=== PATIENT | male | born 1935 | race African-American/Black ===

== ENCOUNTER 2016-05-04 18:32 | Inpatient (IN) | payer MEDICARE, OTHER ==
[~2016-05-04] VITALS: Ht 152.4 cm; Wt 48.8 kg
[2016-05-04] MEDS ORDERED: CEFEPIME 2GM/50 ML (PMX) 50 ML IVPB STA (18:35)
[2016-05-04] MEDS ORDERED: SOD CHLORIDE 0.9% 1,000 ML IV STA ×2 (18:35)
[2016-05-04 18:49] VITALS: Ht 152.4 cm; Wt 48.8 kg
[2016-05-04] MEDS ORDERED: VANCOMYCIN 1 GM (PMX) 250 ML IVPB ONE (19:00)
[2016-05-04] MEDS ORDERED: ACETAMINOPHEN 650 MG SUPP PR ONE (19:00)
[2016-05-04 19:03] LABS: HEMATOCRIT 29.9 % (42.0-52.0); HEMOGLOBIN 10.1 g/dl (14.0-18.0); MEAN CORPUSCULAR HEMOGLOBIN 30.9 pg (29.0-33.0); MEAN CORPUSCULAR HGB CONC 33.7 g/dl (32.0-37.0); MEAN CORPUSCULAR VOLUME 91.6 fl (82.0-101.0); MEAN PLATELET VOLUME 7.6 fl (7.4-10.4); PLATELET COUNT 235 10^3/UL (140-440); RED BLOOD COUNT 3.27 10^6/ul (4.70-6.10); RED CELL DISTRIBUTION WIDTH 16.5 % (11.5-14.5); UNCORRECTED WBC 24.3 10^3/ul (4.8-10.8); WHITE BLOOD COUNT 24.3 10^3/ul (4.8-10.8)
[2016-05-04 19:04] LABS: CONDITION 1; SUSPECT 1
[2016-05-04 19:05] LABS: LH ANALYZER COMMENTS 1
[2016-05-04 19:09] LABS: ADD UMIC YES; URINE BILIRUBIN (Dip) NEGATIVE (NEGATIVE); URINE BLOOD (Dip) TRACE (NEGATIVE); URINE COLOR LT. YELLOW (YELLOW); URINE GLUCOSE (Dip) NEGATIVE (NEGATIVE); URINE KETONES (Dip) NEGATIVE (NEGATIVE); URINE LEUKOCYTE ESTERASE (Dip) 3+ (NEGATIVE); URINE NITRITE (Dip) NEGATIVE (NEGATIVE); URINE TOTAL PROTEIN (Dip) 4+ (NEGATIVE); URINE UROBILINOGEN (Dip) 0.2 E.U./dL (0.1-1.0)
[2016-05-04 19:12] LABS: INR 1.22; PROTIME 15.5 Sec (12.2-14.2); PT RATIO 1.2
[2016-05-04 19:13] LABS: PARTIAL THROMBOPLASTIN TIME 39.9 Sec (25.0-35.0)
[2016-05-04 19:17] LABS: ALBUMIN 3.5 g/dl (3.3-4.9); BACTERIA,URINE MODERATE; POTASSIUM 4.3 mmol/L (3.5-5.1); URINE RBCS 0-2 /HPF (0)
[2016-05-04 19:19] LABS: CREATININE 3.19 mg/dl (0.61-1.24)
[2016-05-04 19:20] LABS: ALBUMIN/GLOBULIN RATIO 0.7; CALCIUM 8.4 mg/dl (8.4-10.2); TOTAL PROTEIN 8.5 g/dl (6.1-8.1)
[2016-05-04 19:38] LABS: MONOCYTE # 0.7 10^3/ul (0.3-0.9); NEUTROPHIL # 19.7 10^3/ul (1.6-7.5); PLATELET ESTIMATE PLT APPEAR ADEQUATE
[2016-05-04 19:42] LABS: TROPONIN-I 0.13 ng/ml (0.00-0.12)
--- NOTE | 2016-05-04 19:54 | RADRPT ---
PROCEDURE: XR Chest. CLINICAL INDICATION: Sepsis TECHNIQUE: Single frontal chest x-ray. COMPARISON: None. FINDINGS: There is mild bibasilar atelectasis. No acute infiltrate, pleural effusion or pneumothorax is ident ified. Cardiomediastinal silhouette is borderline enlarged. Aortic atherosclerotic calcifications are noted. The osseous structures are remarkable for degenerative spondylosis of the spine. IMPRESSION: 1. Borderline enlarged cardiac silhouette. 2. Aortic atherosclerosis. 3. Mild bibasilar atelectasis. 4. No evidence of acute cardiopulmonary process. RPTAT: QQ .Maikel Rendon MD, Date Time Electronically viewed and signed by .Maikel Rendon MD, on 05/04/2016 19:54 .R/
[2016-05-04] MEDS ORDERED: ASPIRIN 300 MG SUPP PR ONE (20:00)
--- NOTE | 2016-05-04 20:12 | ERA ---
ER Documentation Chief Complaint Date/Time DATE: 05/04/16 TIME: 20:09 Chief Complaint respiratory distress HPI Patient is a 72-year-old male who presents with fever, tachycardia, and hypoxia. Please note the history and physical exam is limited secondary to the patient being nonverbal at baseline. The patient was 88% oxygen saturation on nonrebreather mask. He came from a nursing facility. He is a DNR. His primary doctor is Dr. Parker Christie. I cannot obtain history otherwise. ROS All systems reviewed and are negative except as per history of present illness. Allergies Allergies: Coded Allergies: No Known Allergy (Unverified , 05/04/16) PMhx/Soc Hx Neurological Disorder: Yes (parkinsons, CVA (L weakness), seizures) Hx Psychiatric Problems: Yes (dementia, depression) Smoking Status: Unknown if ever smoked FmHx Unable to obtain Physical Exam Vitals Vital Signs Date Time Temp Pulse Resp B/P Pulse Ox O2 Delivery O2 Flow Rate FiO2 05/04/16 19:06 Non Rebreather 15.0 05/04/16 18:50 Non Rebreather 15 05/04/16 18:49 100.2 102 21 121/100 100 Physical Exam Const: Chronically ill Head: Atraumatic Eyes: Normal Conjunctiva ENT: Normal External Ears, Nose and Mouth. Neck: Full range of motion..~ No meningismus. Resp: Decreased breath sounds bilateral Cardio: Regular rate and rhythm, no murmurs Abd: Soft, non tender, non distended. Normal bowel sounds Skin: Pale Back: No midline or flank tenderness Ext: No cyanosis, or edema Neur: Encephalopathic at baseline Result Diagram: 05/04/16183405/04/16 1835 Results 24 hrs Laboratory Tests Test 05/04/16 18:35 Activated Partial Thromboplast Time 39.9Sec Alanine Aminotransferase (ALT/SGPT) 37IU/L Albumin 3.5g/dl Albumin/Globulin Ratio 0.70 Alkaline Phosphatase 173IU/L Anion Gap 19 Aspartate Amino Transf (AST/SGOT) 73IU/L Band Neutrophils % 12.0% Blood Morphology Comment Blood Urea Nitrogen 104mg/dl Calcium Level 8.4mg/dl Carbon Dioxide Level 31mmol/L Chloride Level 102mmol/L Creatinine 3.19mg/dl Direct Bilirubin 0.00mg/dl Globulin 5.00g/dl Glucose Level 127mg/dl Hematocrit 29.9% Hemoglobin 10.1g/dl INR International Normalized Ratio 1.22 Indirect Bilirubin 0.0mg/dl Lactic Acid Level 2.1mmol/L Lymphocytes # 1.010^3/ul Lymphocytes % 4.0% Mean Corpuscular Hemoglobin 30.9pg Mean Corpuscular Hemoglobin Concent 33.7g/dl Mean Corpuscular Volume 91.6fl Mean Platelet Volume 7.6fl Monocytes # 0.710^3/ul Monocytes % 3.0% Neutrophils # 19.710^3/ul Neutrophils % 81.0% Platelet Count 61747^3/UL Platelet Estimate PLT APPEAR ADEQUATE Potassium Level 4.3mmol/L Prothrombin Time 15.5Sec Prothrombin Time Ratio 1.2 Red Blood Count 3.2710^6/ul Red Cell Distribution Width 16.5% Sodium Level 148mmol/L Total Bilirubin 0.0mg/dl Total Protein 8.5g/dl Troponin I 0.130ng/ml Urine Bacteria MODERATE Urine Bilirubin NEGATIVE Urine Clarity CLOUDY Urine Color LT. YELLOW Urine Glucose NEGATIVE% Urine Hemoglobin TRACE Urine Ketones NEGATIVE Urine Leukocyte Esterase 3+ Urine Microscopic RBC 0-2/HPF Urine Microscopic WBC 2-5/HPF Urine Nitrite NEGATIVE Urine Specific [place] <=1.005 Urine Total Protein 4+ Urine Triple Phosphate Crystals MODERATE Urine Urobilinogen 0.2 E.U./dL Urine pH >=9.0 White Blood Count 24.310^3/ul Current Medications Medications (Trade) Dose Ordered Sig/Marquita Route PRN Reason Start Time Stop Time Status Last Admin Dose Admin Cefepime HCl 50 ml @ 100 mls/hr ONCE STAT IVPB 05/04/16 18:35 05/04/16 19:04 DC 05/04/16 19:13 Vancomycin HCl 250 ml @ 125 mls/hr ONCE ONCE IVPB 05/04/16 19:00 05/04/16 20:59 05/04/16 19:40 Sodium Chloride 1,000 ml @ 1,000 mls/hr Q1H STAT IV 05/04/16 18:35 05/04/16 19:34 DC 05/04/16 19:12 Sodium Chloride (NS) 1,000 ml @ 1,000 mls/hr Q1H STAT IV 05/04/16 18:35 05/04/16 19:34 DC 05/04/16 19:40 Acetaminophen (Tylenol Supp) 650 mg ONCE ONCE [place] 05/04/16 19:00 05/04/16 19:01 DC 05/04/16 19:13 Aspirin (Aspirin) 300 mg ONCE ONCE [place] 05/04/16 20:00 05/04/16 20:01 DC Ondansetron HCl (Zofran Inj) 4 mg BRIDGE ORDER PRN IV NAUSEA AND/OR VOMITING 05/04/16 20:30 05/05/16 20:29 Acetaminophen (Tylenol Tab) 650 mg ER BRIDGE PRN PO MILD PAIN/FEVER 05/04/16 20:30 05/05/16 20:29 Procedures/MDM EKG read by me: Rate/Rhythm: Regular rate and rhythm at a rate of 98 Intervals: Normal Impression: Wandering baseline but no obvious signs of ST elevations or depressions Chest X-ray 1V Interpreted by me: Soft Tissue: No acute abnormalities Bones: No acute abnormalities Mediastinum/Cardiac Silhouette/Lungs: Possible left lower lobe infiltrate Admit MDM: Patient's infectious symptoms have not stabilized and the patient is at risk of rapid decompensation. The patient will be admitted for careful hydration, antibiotic therapy, and infectious source control. Severe Sepsis criteria: Infectious source: Pneumonia End organ damage indicated by: Lactate greater than 2 Sepsis Management: Time of recognition of sepsis: 18:35 Within 3 hours of recognition: Blood cultures x 2 before broad-spectrum antibiotics: Yes 30 ml/kg NS bolus Completed Initial lactate 2.1 Repeat lactate pending Time of recognition of septic shock: No septic shock Septic Shock Assessment: Any lactic acid > 4.0 No Persistent hypotension (SBP < 90 or 40 mmHg drop, MAP < 65) despite 30 mL/kg IV fluid bolus No Volume Re-assessment for Septic Shock (post 30 ml/kg bolus): No septic shock at this time Persistent Hypotension Treatment: Comfort care No Central line Not Required Vasopressor started Not required I considered further perfusion assessment with CVP measurement, SCVO2, bedside ultrasound volume assessment, passive leg raise, trial of further fluid bolus. And proceeded with 30 ml/kg fluid bolus of NSS, broad spectrum antibiotics, and admission. The patient was also given aspirin per rectum as he had a positive troponin. He is DNR and I believe that medical surgical bed is appropriate at this time. He was found to be profoundly dehydrated with a BUN creatinine ratio greater than 20. He also has acute renal failure with a creatinine of 3.19. He has a 24 white blood cell count as well as 12% bandemia which portends a poor prognosis. Accepting Care Team Current data and ongoing care discussed. Admitting Physician: Dr. Lan Weather Stripper(s): None Outstanding Data: Culture results and repeat lactic acid Critical Care: Critical care time 45 minutes excluding all billable procedures Emergent fluid management while maintaining close respiratory support. Provision of immediate and broad-spectrum antibiotic therapy. Simultaneous assessment for possible sources in order to direct targeted therapy. Consideration for invasive and chemical support to prevent cardiopulmonary collapse. Departure Diagnosis: Primary Impression: Severe sepsis Additional Impressions: Anemia Qualified Code: D64.9 - Anemia, unspecified type Respiratory distress NSTEMI (non-ST elevated myocardial infarction) Pneumonia Qualified Code: J18.9 - Pneumonia due to infectious organism, unspecified laterality, unspecified part of lung Condition: Serious AN OAKES MD May 04, 2016 20:11
[2016-05-04] MEDS ORDERED: ACETAMINOPHEN 325 MG TAB PO PRN (20:30)
[2016-05-04] MEDS ORDERED: ONDANSETRON 4 MG INJ IV PRN ×2 (20:30→21:30)
--- NOTE | 2016-05-04 20:39 | HP ---
Date/Time of Note Date/Time of Note DATE: 05/04/16 TIME: 20:37 Assessment/Plan VTE Prophylaxis VTE Prophylaxis Intervention: heparin Assessment/Plan Assessment/Plan 1. Sepsis with bandemia 2/2 UTI 2. UTI 3. Acute renal failure r/o CKD 4. NSTEMI versus troponin leak 5. Hypernatremia 6. Mild transaminitis 7. Chronic Parkinson's 8. 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 Seizures 10. Dementia 11. Depression 12. Chronic malnutrition PLAN: admit for empiric abx therapy / pancultures / Complete ACS r/o/ 2D echo / cardiology consult Continue home meds / fall and seizure precautions / serial labs pain control/ antiemetics/ antipyretics/ supportive care Poor prognosis. recommend hospice care Prophylaxis: Heparin / pepcid Further evaluation and treatment will be based on clinical course Full discussion with care team done. All questions Answered Please also see orders. Total time spent on this evaluation >35mins HPI/ROS Admit Date/Time Admit Date/Time 05/04/16 Hx of Present Illness PRESENTING COMPLAINT: fever HISTORY OF PRESENTING COMPLAINT:80 yo M sent from the [facility]F with fever, decreased saturation, and tachycardia. Patient is non verbal at baseline and is DNR per records.Patient is also chronically contracted and no further hx is obtainable. ROS Subjective hx not possible: pt non-verbal PMH/Family/Social Past Medical History 1. Parkinson's 2. Previous CVA with residual left-sided weakness and dysphagia 3. Seizures 4. Dementia 5. Depression Past Surgical History * PEG tube Family History Significant Family History: other (unknown) Social History Smoking Status: Unknown if ever smoked Exam/Review of Systems Vital Signs Vitals VS - Last 72 Hours, by Label Date Time Temp Pulse Resp B/P Pulse Ox O2 Delivery O2 Flow Rate FiO2 05/04/16 20:51 96 20 152/132 100 Non Rebreather 15.0 05/04/16 19:06 Non Rebreather 15.0 05/04/16 18:50 Non Rebreather 15 05/04/16 18:49 100.2 102 21 121/100 100 Vital Signs Date Time Temp Pulse Resp B/P Pulse Ox O2 Delivery O2 Flow Rate FiO2 05/04/16 19:06 Non Rebreather 15.0 05/04/16 18:49 100.2 102 21 121/100 100 Exam Constitutional: alert (sarita open eyes), frail, other (contracted in both LE and LUE) Psych: other (Unable to assess) Head: normocephalic, other (+temporal msc wasting), No atraumatic Eyes: PERRL ENMT: No mucosa pink and moist (dry) Respiratory: crackles/rales, diminished breath sounds, labored breathing, wheezing Cardiovascular: murmurs/extra sounds, No regular rate and rhythm Gastrointestinal: bowel sounds, other (PEG tube noted, no cellulitis noted, nor oozing or discharge), soft Genitourinary - Male: other (penile orifice is widened with the presence of chronic martinez) Musculoskeletal: range of motion (reduced range of motion with chronic contractures in both LE and LUE. Patient only moves RUE spontaneously. ), No muscle tone (increased msc tone with chronic msc wasting ), No nl extremities to inspection Neurological: other, unresponsive (encephalopathic), No nl mental status Labs Result Diagram: 05/04/165 05/04/16 1835 Medications Medications Current Medications Vancomycin HCl (Vancocin) 250 ml @ 125 mls/hr ONCE ONCE IVPB Last administered on 05/04/16t 19:40; Admin Dose 125 MLS/HR; Start 05/04/16 at 19:00; Stop 05/04/16 at 20:59 Procedures Procedures Laboratory Tests Test 05/04/16 18:35 Activated Partial Thromboplast Time 39.9Sec Alanine Aminotransferase (ALT/SGPT) 37IU/L Albumin 3.5g/dl Albumin/Globulin Ratio 0.70 Alkaline Phosphatase 173IU/L Anion Gap 19 Aspartate Amino Transf (AST/SGOT) 73IU/L Band Neutrophils % 12.0% Blood Morphology Comment Blood Urea Nitrogen 104mg/dl Calcium Level 8.4mg/dl Carbon Dioxide Level 31mmol/L Chloride Level 102mmol/L Creatinine 3.19mg/dl Direct Bilirubin 0.00mg/dl Globulin 5.00g/dl Glucose Level 127mg/dl Hematocrit 29.9% Hemoglobin 10.1g/dl INR International Normalized Ratio 1.22 Indirect Bilirubin 0.0mg/dl Lactic Acid Level 2.1mmol/L Lymphocytes # 1.010^3/ul Lymphocytes % 4.0% Mean Corpuscular Hemoglobin 30.9pg Mean Corpuscular Hemoglobin Concent 33.7g/dl Mean Corpuscular Volume 91.6fl Mean Platelet Volume 7.6fl Monocytes # 0.710^3/ul Monocytes % 3.0% Neutrophils # 19.710^3/ul Neutrophils % 81.0% Platelet Count 38285^3/UL Platelet Estimate PLT APPEAR ADEQUATE Potassium Level 4.3mmol/L Prothrombin Time 15.5Sec Prothrombin Time Ratio 1.2 Red Blood Count 3.2710^6/ul Red Cell Distribution Width 16.5% Sodium Level 148mmol/L Total Bilirubin 0.0mg/dl Total Protein 8.5g/dl Troponin I 0.130ng/ml Urine Bacteria MODERATE Urine Bilirubin NEGATIVE Urine Clarity CLOUDY Urine Color LT. YELLOW Urine Glucose NEGATIVE% Urine Hemoglobin TRACE Urine Ketones NEGATIVE Urine Leukocyte Esterase 3+ Urine Microscopic RBC 0-2/HPF Urine Microscopic WBC 2-5/HPF Urine Nitrite NEGATIVE Urine Specific [place] <=1.005 Urine Total Protein 4+ Urine Triple Phosphate Crystals MODERATE Urine Urobilinogen 0.2 E.U./dL Urine pH >=9.0 White Blood Count 24.310^3/ul ER INTERVENTIONS Medications (Trade) Dose Ordered Sig/Marquita Route PRN Reason Start Time Stop Time Status Last Admin Dose Admin Cefepime HCl 50 ml @ 100 mls/hr ONCE STAT IVPB 05/04/16 18:35 05/04/16 19:04 DC 05/04/16 19:13 100 MLS/HR Vancomycin HCl 250 ml @ 125 mls/hr ONCE ONCE IVPB 05/04/16 19:00 05/04/16 20:59 05/04/16 19:40 125 MLS/HR Sodium Chloride 1,000 ml @ 1,000 mls/hr Q1H STAT IV 05/04/16 18:35 05/04/16 19:34 DC 05/04/16 19:12 1,000 MLS/HR Sodium Chloride (NS) 1,000 ml @ 1,000 mls/hr Q1H STAT IV 05/04/16 18:35 05/04/16 19:34 DC 05/04/16 19:40 1,000 MLS/HR Acetaminophen (Tylenol Supp) 650 mg ONCE ONCE [place] 05/04/16 19:00 05/04/16 19:01 DC 05/04/16 19:13 650 MG Aspirin (Aspirin) 300 mg ONCE ONCE [place] 05/04/16 20:00 05/04/16 20:01 DC Ondansetron HCl (Zofran Inj) 4 mg BRIDGE ORDER PRN IV NAUSEA AND/OR VOMITING 05/04/16 20:30 05/05/16 20:29 Acetaminophen (Tylenol Tab) 650 mg ER BRIDGE PRN PO MILD PAIN/FEVER 05/04/16 20:30 05/05/16 20:29 Reviewed CXR and agree with radiology assessment as below: PROCEDURE: XR Chest. CLINICAL INDICATION: Sepsis TECHNIQUE: Single frontal chest x-ray. COMPARISON: None. FINDINGS: There is mild bibasilar atelectasis. No acute infiltrate, pleural effusion or pneumothorax is identified. Cardiomediastinal silhouette is borderline enlarged. Aortic atherosclerotic calcifications are noted. The osseous structures are remarkable for degenerative spondylosis of the spine. IMPRESSION: 1. Borderline enlarged cardiac silhouette. 2. Aortic atherosclerosis. 3. Mild bibasilar atelectasis. 4. No evidence of acute cardiopulmonary process. RPTAT: QQ .Maikel Rendon MD, MD Date Time Electronically viewed and signed by .Maikel Rendon MD, on 05/04/2016 19: 54 I reviewed EKG Rate: Within normal limits Rhythm: sinus Note: No ST elevation or depressions noted concerning for acute ischemic event. NEFTALI MISHRA May 04, 2016 20:39
[2016-05-04] MEDS: DOCUSATE SODIUM 100 MG CAP PO SCH (21:30)
[2016-05-04] MEDS ORDERED: VANCOMYCIN IV PER PHARMACY XX SCH (21:30)
[2016-05-04] MEDS ORDERED: FAMOTIDINE 20 MG INJ IV SCH (21:30)
[2016-05-04 21:49] VITALS: BP 89/50; RESP 20
[2016-05-04] MEDS ORDERED: HALOPERIDOL 5 MG INJ IM ONE (22:00)
[2016-05-04] MEDS: SOD CHLORIDE 0.45% 1,000 ML IV SCH (22:38)
[2016-05-04] MEDS ORDERED: ALBUTEROL/IPRATROPIUM (NEB) 3 ML AMP HHN PRN (23:00)
[2016-05-04 23:47] LABS: TROPONIN-I 0.121 ng/ml (0.00-0.12)
[2016-05-04 23:48] LABS: CK-MB 9.2 ng/ml (0.0-2.4)
[2016-05-04] MEDS: PIPER-TAZO 2.25 GM (PMX) 50 ML IVPB SCH (23:54)
[2016-05-05] MEDS: ALBUTEROL/IPRATROPIUM (NEB) 3 ML AMP HHN SCH ×4 (00:38→13:00)
[2016-05-05] MEDS: ACETAMINOPHEN 650MG/20.3ML CUP GTB PRN ×2 (02:09→21:10)
[2016-05-05] MEDS ORDERED: SOD CHLORIDE 0.9% 1,000 ML IV ONE (06:00)
[2016-05-05] MEDS: PIPER-TAZO 2.25 GM (PMX) 50 ML IVPB SCH ×3 (06:06→22:16)
[2016-05-05 06:35] LABS: INR 1.32; PROTIME 16.5 Sec (12.2-14.2); PT RATIO 1.3
[2016-05-05 06:36] LABS: PARTIAL THROMBOPLASTIN TIME 37.8 Sec (25.0-35.0)
[2016-05-05 06:53] LABS: ALBUMIN 2.2 g/dl (3.3-4.9)
[2016-05-05 06:54] LABS: POTASSIUM 3.9 mmol/L (3.5-5.1)
[2016-05-05 06:56] LABS: CREATININE 2.58 mg/dl (0.61-1.24)
[2016-05-05 06:57] LABS: ALBUMIN/GLOBULIN RATIO 0.64; CALCIUM 6.7 mg/dl (8.4-10.2); TOTAL PROTEIN 5.6 g/dl (6.1-8.1)
[2016-05-05 07:02] LABS: BASOPHILS % 0.1 % (0.0-2.0); CK-MB 13.3 ng/ml (0.0-2.4); EOSINOPHILS % 0.1 % (0.0-7.0); HEMATOCRIT 22.3 % (42.0-52.0); HEMOGLOBIN 7.4 g/dl (14.0-18.0); LYMPHOCYTES # 0.7 10^3/ul (0.8-2.9); LYMPHOCYTES % 3.6 % (15.0-51.0); MEAN CORPUSCULAR HEMOGLOBIN 29.7 pg (29.0-33.0); MEAN CORPUSCULAR VOLUME 89.8 fl (82.0-101.0); MEAN PLATELET VOLUME 7.9 fl (7.4-10.4); MONOCYTE # 0.7 10^3/ul (0.3-0.9); MONOCYTES % 3.9 % (0.0-11.0); NEUTROPHIL # 16.9 10^3/ul (1.6-7.5); NEUTROPHILS % 92.3 % (39.0-77.0); PLATELET COUNT 170 10^3/UL (140-440); RED BLOOD COUNT 2.49 10^6/ul (4.70-6.10); RED CELL DISTRIBUTION WIDTH 16.3 % (11.5-14.5); TROPONIN-I 0.149 ng/ml (0.00-0.12); UNCORRECTED WBC 18.3 10^3/ul (4.8-10.8)
[2016-05-05 07:07] LABS: CONDITION 1; LH ANALYZER COMMENTS 1; SUSPECT 1
[2016-05-05 07:08] LABS: WHITE BLOOD COUNT 18.3 10^3/ul (4.8-10.8)
[2016-05-05 07:32] VITALS: BP 65/35; RESP 16
--- NOTE | 2016-05-05 08:37 | RADRPT ---
PROCEDURE: US Lower extremity Venous. CLINICAL INDICATION: Bilateral lower extremity swelling , shortness of breath TECHNIQUE: Multiple sonographic images of the bilateral lower extremity deep venous system was obt ained utilizing grayscale, color-flow, compressive sonography and doppler imaging with augmentation. The images were reviewed on a PACS workstation. COMPARISON: None. FINDINGS: There is normal compressibility and flow within the bilateral common femoral, superficial femoral , posterior tibial and popliteal veins. The right soleal vein is not compressible, consistent with thrombosis. 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 A call report was made and the findings discussed with nurse Carri at 05/05/2016 8:32:21 AM. .Elvis Treviño MD, MD Date Time Electronically viewed and signed by .Elvis Treviño MD, on 05/05/2016 08:37 .S/
[2016-05-05] MEDS: CHOLECALCIFEROL 400 UNITS TAB GTB SCH (09:00)
[2016-05-05] MEDS ORDERED: carBAMAZEpine SUSP 100 MG/5 ML NGT SCH (09:00)
[2016-05-05] MEDS ORDERED: LOSARTAN 50 MG TAB GTB SCH (09:00)
[2016-05-05] MEDS: LEVETIRACETAM (100 MG/ML) 5ML CUP GTB SCH ×3 (09:35→20:56)
[2016-05-05] MEDS: SOD CHLORIDE 0.45% 1,000 ML IV SCH ×2 (09:35→16:30)
[2016-05-05] MEDS: FERROUS SULFATE 60 MG/ML 5ML CUP NGT SCH (09:38)
[2016-05-05] MEDS: CARBIDOPA/LEVODOPA (25/100) TAB NGT SCH ×2 (09:39→20:57)
[2016-05-05] MEDS: FAMOTIDINE 20 MG INJ IV SCH (09:40)
[2016-05-05] MEDS: ASCORBIC ACID 500 MG TAB NGT SCH ×2 (09:40→20:56)
[2016-05-05] MEDS: ASPIRIN (EC) 81 MG TAB PO SCH (09:40)
[2016-05-05] MEDS: ZINC SULFATE 220 MG CAP NGT SCH (09:40)
[2016-05-05] MEDS: DOCUSATE SODIUM 100 MG CAP PO SCH ×2 (09:40→21:00)
[2016-05-05] MEDS: HEPARIN 5,000 UNIT/0.5 ML SYG SC SCH ×2 (09:42→20:57)
[2016-05-05 10:28] VITALS: BP 81/50; PULSE 78
[2016-05-05] MEDS: carBAMAZepine SUSP 20 MG/ML POSYG NGT SCH ×2 (10:34→19:01)
[2016-05-05 10:52] LABS: PLATELET ESTIMATE PLT APPEAR ADEQUATE
--- NOTE | 2016-05-05 11:08 | RADRPT ---
PROCEDURE: Retroperitoneal US. CLINICAL INDICATION: Renal insufficiency TECHNIQUE: Multiple sonographic images of the kidneys and retroperitoneum were obtained. The imag es were reviewed on a PACS workstation. COMPARISON: No prior studies are available for comparison. FINDINGS: The right kidney measures 10.3 cm. The left kidney measures 12.3 cm. There is a large complex cystic and solid mass in the upper pole of the right kidney measuring 10.1 x 7.2 x 9.2 cm. No kidney stones are visualized. There is moderate bilateral hydronephrosis and proximal hydroureter . There is a large amount of echogenic material within the urinary bladder with a Shine catheter withi n it. A mass is not excluded. The ureteral jets were not detected. RPTAT: AA IMPRESSION: Moderate bilateral hydronephrosis and hydroureter. Large amount of echogenic material within the urinary bladder which may represent debris versus a ma ss. Large complex cystic and solid mass in the upper pole of the right kidney, suspicious for kidney dionte plasm. Further evaluation with a CT urogram is recommended. .Elvis Treviño MD, Date Time Electronically viewed and signed by .Elvis Treviño MD, MD on 05/05/2016 11:07 .S/
--- NOTE | 2016-05-05 11:53 | CONS ---
DATE OF ADMISSION: 05/04/2016 DATE OF CONSULTATION: 05/05/2016 TYPE OF CONSULTATION: Nephrology. REASON FOR CONSULTATION: Acute kidney injury. REQUESTING PHYSICIAN: Dr. Lan. HISTORY OF PRESENT ILLNESS This is a 80-year-old male with a past medical history of advanced Parki nson's disease and Parkinson's dementia, history of chronic kidney disease stage III with baseline c reatinine around 1 to 1.3 mg/dl, history of CVA, seizure disorder, depression. He presents to [facility] from a group home facility due to respiratory distress. The patient upo n arrival into the emergency room was noted to be nonverbal at baseline. He was saturating 80% on n onrebreather. In the emergency room, the patient had a chest x-ray performed which showed no eviden ce of acute cardiopulmonary process. His laboratory data drawn showed a white count of 24,000 and a lactic acid level of 2.1. The patient had a urinalysis that showed nonsignificant pyuria. The rebecca ent in the emergency room was diagnosed with severe sepsis, respiratory distress, possible pneumonia , started on IV fluids, IV antibiotics and admitted to med/surg for further evaluation and care. Wh ile on med/surg, the patient was noted to be hypotensive and has been receiving a bolus of IV fluids . In terms of the patient's renal history, the patient's previous creatinine has been noted to be arou nd 1 to 1.3 mg/dl from outside records. The patient on admission was noted to have a BUN of 104 and a creatinine of 2.58. The patient had no recent IV contrast exposure or NSAID exposure. The patien t's CK levels were noted to be mildly elevated at 1000. There are no reports of hemoptysis, hemetem esis, hematochezia. PAST MEDICAL HISTORY: As stated above, history of CKD, history of hypertension, history of CVA, his tory of dementia, history of Parkinson's disease, history of seizure disorder. PAST SURGICAL HISTORY: Status post PEG tube. FAMILY HISTORY: None known. SOCIAL HISTORY: Resides at a skilled nurse facility. MEDICATIONS: The patient's medications have been reviewed. REVIEW OF SYSTEMS: Unable to do adequately review systems as the patient is nonverbal. Pertinent p ositives obtained by reviewing medical records in HPI, otherwise negative. PHYSICAL EXAMINATION: VITAL SIGNS: Blood pressure is 81/55, respirations 16, pulse 66, temperature 97.8. I'S AND O'S: The patient had 1 liter and output is not recorded. GENERAL: The patient is frail, weak, cachectic. HEENT: Head is normocephalic. NECK: Supple. HEART: Tachycardic. LUNGS: Show diminished breath sounds at the base. ABDOMEN: Soft, nontender to palpation. Positive PEG. EXTREMITIES: Negative for clubbing, cyanosis. No edema. DERMATOLOGIC: No rashes. MUSCULOSKELETAL EXAMINATION: No joint effusions. NEUROLOGIC: Limited exam, the patient is unable to cooperate. LABORATORY DATA: Shows sodium 147, potassium .9, chloride 109, BUN is 95, creatinine 2.58, mag nesium 3.1. CK level is 1200. White count 18.3, hemoglobin 7.4, hematocrit 22.3, platelet count is 170. IMAGING STUDIES: As stated in HPI. ASSESSMENT AND PLAN: This is a 80-year-old male who presents with: 1. Nonoliguric acute kidney injury on top of chronic kidney disease stage III with a previous basel ine creatinine between around 1 to 1.3 mg/dL. Etiology of acute kidney injury is secondary to sepsi s, possible tubular injury. The patient's urinalysis shows no pyuria, no hematuria. There is noted +4 proteinuria, but otherwise, nonactive sediment. Plan at this point is to continue current treat ment plan. Continue intravenous hydration. Continue intravenous antibiotics to treat underlying se psis. We will repeat a urinalysis with microanalysis. We will check urine electrolytes, calculate a FENa (fractional excretion of sodium, fractional excretion of urea. We will check a renal ultraso und to evaluate renal parenchyma. Would otherwise continue supportive care, renally dose meds, avoi d nephrotoxins. 2. Hypernatremia. The patient has a free water deficit of approximately 2 liters. We will continu e hypertonic fluids at a half normal saline (NS) at 125 mL an hour and monitor closely. 3. Hypotension, etiology is secondary to severe sepsis. Continue treatment plan. Continue antibio tics. Continue intravenous fluids and monitor closely. 4. Mineral bone disorder. We will check a calcium, phosphorus level, PTH, vitamin D25 level. No n eed for phosphate binders at this time. 5. Anemia, likely of chronic disease. Continue to monitor hemoglobin and hematocrit levels closely . Rule out for any form of gastrointestinal bleed. Will check stool for occult blood. 6. Severe sepsis. Underlying source is unclear, possible pneumonia. The patient's blood cultures are positive for gram-negative rods. We will continue current treatment plan of fluids and antibiot ics. If the patient remains hypotensive, not responding to intravenous fluids, he will likely need pressor support. 7. Skin encephalopathy and dementia. Etiology is toxic metabolic. Continue to monitor. 8. Elevated troponin, possible non-ST elevation myocardial infarction type II in the setting of sep sis. Continue medical management. Follow up with Cardiology. 9. Seizure disorder. Continue medical management. 10. Parkinson's. Continue Sinemet. Thank you, Dr. Lan, for this interesting consult. It will be a pleasure to follow the patient with you throughout the hospital course. Dictated By: JESSICA HORTON/ERICA Conf#: [id number] DID#: [id number]
--- NOTE | 2016-05-05 12:23 | CONS ---
DATE OF ADMISSION: 05/04/2016 DATE OF CONSULTATION: 05/05/2016 TYPE OF CONSULTATION: Infectious Disease. REASON FOR CONSULTATION: Antibiotic management. HISTORY OF PRESENT ILLNESS: Galdino Mora is an unfortunate 80-year-old male who comes in wi th fever. The patient lives in a long-term facility. He is nonverbal. He is DNR. He is chr onically contracted. His problems include: 1. Parkinson disease. 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 3. Seizure disorder. 4. Dementia. 5. Depression. 6. Status post G-tube placement. 7. Chronic malnutrition. 8. Renal failure. On admission, his white count was 24.3, today on the 2nd it was 18.3, H and H 7.4 and 22.3, platelet count 170,000. BUN and creatinine 95/2.58. Urine is positive for 3+ leukocyte esterase, negative for nitrite, 2 to 5 white cells per high-power field. Chest x-ray is borderline cardiac silhouette, no evidence of acute cardiopulmonary process. Microbiology shows gram negative rods in the urine and blood. C. difficile was negative. Influenza workup is negative. The patient is UTI with sepsi s. PAST MEDICAL HISTORY: Operations as outlined. FAMILY HISTORY: Noncontributory. SOCIAL HISTORY: Does not smoke, drink or abuse drugs. ALLERGIES: NONE TO PENICILLIN, SULFA OR FOODS. MEDICATIONS: Per chart. REVIEW OF SYSTEMS: As per HPI. PHYSICAL EXAMINATION: GENERAL: The patient is frail, contracted, nonverbal. He is awake but noncommunicative. SKIN: Without generalized rash. HEENT: Within normal limits. NECK: Supple. LYMPH NODES: None palpable. CHEST: Decreased breath sounds at the bases with rales and labored breathing. HEART: Without murmur or gallop. ABDOMEN: Soft, nontender, without organosplenomegaly or masses. He has G-tube in place. EXTREMITIES: Without cyanosis, clubbing, or edema. He has contractures as noted. RECTAL AND GENITAL: He has chronic Shine catheter. NEUROLOGIC: The patient is encephalopathic. IMPRESSION AND PLAN: The patient currently is septic from his urine. He is on Zosyn, which is appro priate. He is on vancomycin, which we probably will stop . I will dictate my findings to the hospitalist and to Dr. Morales. Dictated By: LAVELL STEVENS MD, JD/ERICA Conf#: [id number] DID#: [id number]
[2016-05-05] MEDS ORDERED: SODIUM CHLORIDE 0.45% 500 ML BAG IV* ONE (16:30)
[2016-05-05] MEDS ORDERED: SODIUM CHLORIDE 0.45% 1L BAG IV* ONE (16:30)
[2016-05-05] MEDS ORDERED: ALBUTEROL/IPRATROPIUM (NEB) 3 ML AMP HHN PRN (16:30)
--- NOTE | 2016-05-05 16:34 | CONS ---
Date/Time of Note Date/Time of Note DATE: 05/05/16 TIME: 16:28 Assessment/Plan Assessment/Plan Additional Assessment/Plan Sepsis likely secondary to UTI Hypotension Elevated troponin Dementia History of CVA Acute kidney injury Severe anemia DNR -Patient troponin elevation likely secondary to hypotension, sepsis and renal dysfunction. Levels have remained static. Would continue aggressive IV hydration to maintain systolic blood pressure above 90, antibiotics as per infectious disease, continue aspirin therapy, start statin therapy, would hold any antihypertensives or nephrotoxic medications. Echocardiogram pending. Consultation Date/Type/Reason Admit Date/Time 05/04/16 Type of Consultation: cv Reason for Consultation Elevated troponin Hx of Present Illness This is a 80-year-old male with extensive past medical history including renal disease, dementia, CVA who presents with fever, labile blood pressure, tachycardia and desaturation from a nursing facility. Patient found to have sepsis likely secondary to UTI. On blood work done, patient with mildly elevated troponin and for this reason cardiology consultation was requested. Patient has been started on antibiotics as well as IV fluids. History is obtained from the chart given patient unable to give history. Unable to be performed at the current time given patient's mental status Psychological: other (Unable to assess) Past Medical History CVA Dementia Hypertension Kidney disease Parkinson's Family History Significant Family History: no pertinent family hx Social History Alcohol Use: other (unknown) Smoking Status: Unknown if ever smoked Other Social History From care home facility Exam/Review of Systems Vital Signs Vitals Vital Signs Date Time Temp Pulse Resp B/P Pulse Ox O2 Delivery O2 Flow Rate FiO2 05/05/16 10:28 78 81/50 05/05/16 08:10 20 95 Nasal Cannula 3.0 05/05/16 07:32 97.8 05/05/16 06:06 50 Exam Opened his eyes to his name but not following commands, warm to touch, no apparent distress Head: normocephalic Respiratory: other (course breath sounds bilaterally, no wheezing) Cardiovascular: other (S1-S2 heard), regular rate and rhythm Gastrointestinal: bowel sounds, non-tender, soft Extremities: edema (trace) Results Result Diagram: 05/05/16 0500 05/05/16 0500 Results 24 hrs Laboratory Tests Test 05/04/16 18:35 05/04/16 21:00 05/04/16 23:02 05/05/16 05:00 Activated Partial Thromboplast Time 39.9 H 37.8 H Alanine Aminotransferase (ALT/SGPT) 37 53 Albumin 3.5 2.2 #L Albumin/Globulin Ratio 0.70 0.64 Alkaline Phosphatase 173 H 101 Anion Gap 19 H 19 H Aspartate Amino Transf (AST/SGOT) 73 H 88 H Band Neutrophils % 12.0 H Blood Morphology Comment Blood Urea Nitrogen 104 H 95 H Calcium Level 8.4 6.7 L Carbon Dioxide Level 31 23 Chloride Level 102 109 Creatinine 3.19 H 2.58 H Direct Bilirubin 0.00 0.00 Globulin 5.00 H 3.40 H Glucose Level 127 120 Hematocrit 29.9 L 22.3 #L Hemoglobin 10.1 L 7.4 #L INR International Normalized Ratio 1.22 1.32 Indirect Bilirubin 0.0 0.0 Lactic Acid Level 2.1 1.6 2.2 Lymphocytes # 1.0 0.7 L Lymphocytes % 4.0 L 3.6 L Mean Corpuscular Hemoglobin 30.9 29.7 Mean Corpuscular Hemoglobin Concent 33.7 33.0 Mean Corpuscular Volume 91.6 89.8 Mean Platelet Volume 7.6 7.9 Monocytes # 0.7 0.7 Monocytes % 3.0 3.9 Neutrophils # 19.7 H 16.9 H Neutrophils % 81.0 H 92.3 H Platelet Count 235 170 # Platelet Estimate PLT APPEAR ADEQUATE PLT APPEAR ADEQUATE Potassium Level 4.3 3.9 Prothrombin Time 15.5 H 16.5 H Prothrombin Time Ratio 1.2 1.3 Red Blood Count 3.27 L 2.49 #L Red Cell Distribution Width 16.5 H 16.3 H Sodium Level 148 H 147 H Total Bilirubin 0.0 L 0.0 L Total Protein 8.5 H 5.6 #L Troponin I 0.130 *H 0.121 *H 0.149 *H Urine Bacteria MODERATE Urine Bilirubin NEGATIVE Urine Clarity CLOUDY H Urine Color LT. YELLOW Urine Glucose NEGATIVE Urine Hemoglobin TRACE Urine Ketones NEGATIVE Urine Leukocyte Esterase 3+ H Urine Microscopic RBC 0-2 Urine Microscopic WBC 2-5 Urine Nitrite NEGATIVE Urine Specific [place] <=1.005 L Urine Total Protein 4+ H Urine Triple Phosphate Crystals MODERATE Urine Urobilinogen 0.2 E.U./dL Urine pH >=9.0 White Blood Count 24.3 H 18.3 #H Creatine Kinase 1034 H 1291 H Creatine Kinase Index 0.9 1.0 Creatinine Kinase MB (Mass) 9.20 H 13.30 H Magnesium Level 3.1 H Basophils # 0.0 Basophils % 0.1 Eosinophils # 0.0 Eosinophils % 0.1 Nucleated Red Blood Cells # 0.0 Nucleated Red Blood Cells % 0.0 Parathyroid Hormone (Intact) Prealbumin 8.9 L Medications Medications Current Medications Aspirin (Halfprin) 81 mg DAILY PO Last administered on 05/05/16 09:40; Admin Dose 81 MG; Start 05/05/16 at 09:00 Docusate Sodium (Colace) 100 mg BID PO Last administered on 05/05/16 09:40; Admin Dose 100 MG; Start 05/04/16 at 21:30 Ondansetron HCl (Zofran Inj) 4 mg Q6H PRN IV NAUSEA AND/OR VOMITING; Start 05/04 at 21:30 Heparin Sodium (Porcine) 5000 unit 5,000 unit BID SC Last administered on 09:42; Admin Dose 5,000 UNIT; Start 05/05/16 at 09:00 Piperacillin Sod/ Tazobactam Sod (Zosyn 2.25gm/ 50ml (Pmx)) 50 ml @ 100 mls/hr Q8 IVPB Last administered on 05/05/16 14:08; Admin Dose 100 MLS/HR; Start at 22:00 Famotidine 20 mg 20 mg DAILY IV Last administered on 05/05/16 09:40; Admin Dose 20 MG; Start 05/05/16 at 09:00 Vancomycin HCl (Vancocin) 250 ml @ 125 mls/hr Q72H IVPB ; Start 05/07/16 at 20: 00 Acetaminophen (Tylenol Liquid) 650 mg Q6 PRN GTB PAIN AND OR ELEVATED TEMP Last administered on 05/05/16 02:09; Admin Dose 650 MG; Start 05/05/16 at 01:30 Influenza Virus Vaccine (Fluzone) 0.5 ml ONCE ONCE IM* ; Start 05/06/16 at 09:00 ; Stop 05/06/16 at 09:01 Ascorbic Acid (Vitamin C) 500 mg BID NGT Last administered on 05/05/16 09:40; Admin Dose 500 MG; Start 05/05/16 at 09:00 Carbidopa/Levodopa (Sinemet (25/ 100)) 1 tab Q12 NGT Last administered on 09:39; Admin Dose 1 TAB; Start 05/05/16 at 09:00 Ferrous Sulfate (Feosol Liquid Cup) 325 mg DAILY NGT Last administered on 09:38; Admin Dose 325 MG; Start 05/05/16 at 09:00 Levetiracetam (Keppra Liquid) 250 mg DAILY GTB Last administered on 05/05/16 09 :35; Admin Dose 250 MG; Start 05/05/16 at 09:00 Mirtazapine (Remeron) 7.5 mg HS NGT ; Start 05/05/16 at 21:00 Cholecalciferol (Vitamin D) 400 units DAILY GTB Last administered on 05/05/16 09:00; Admin Dose 400 UNITS; Start 05/05/16 at 09:00 Zinc Sulfate (Zinc Sulfate) 220 mg DAILY NGT Last administered on 05/05/16 09: 40; Admin Dose 220 MG; Start 05/05/16 at 09:00 Carbamazepine 100 mg 100 mg DAILY NGT Last administered on 05/05/16 10:34; Admin Dose 100 MG; Start 05/05/16 at 11:00 Sodium Chloride (1/2 NS) 1,000 ml @ 125 mls/hr Q8H IV ; Start 05/05/16 at 16:30 Sodium Chloride (1/2 NS) 1,000 ml ONCE ONCE IV* ; Start 05/05/16 at 16:30; Stop 05/05/16 at 16:31 Procedures Procedures ECG demonstrates sinus rhythm at 98 bpm, QRS 80 ms, nonspecific STT wave abnormalities Ra Marcos DO May 05, 2016 16:34
[2016-05-05 16:58] VITALS: BP 87/54; PULSE 85
[2016-05-05] MEDS ORDERED: carBAMAZEpine SUSP 100 MG/5 ML GTB SCH (19:05)
[2016-05-05] MEDS: MIRTAZAPINE 15 MG TAB NGT SCH (20:57)
[2016-05-05 20:58] VITALS: BP 70/37; RESP 18
[2016-05-05 21:40] VITALS: BP 77/41; RESP 18
--- NOTE | 2016-05-05 21:47 | RADRPT ---
Echocardiogram Report Patient Name: JOHN CERVANTES Gender: Male Date: 1935 Study Date: 05-May-2016 Project Crew Worker: Arcelia Cardona [facility] Location: [facility] Ref. Physician: NEFTALI MISHRA Quality: Good Procedures: Transthoracic echocardiogram with complete 2D, M-Mode, and doppler examination. Indications: NSTEMI. 2D/M Mode Doppler Measurement Value Normal Ranges Measurement Value Normal Ranges LVIDd 2D 4.3 3.5 - 5.6 cm AV Peak [place] 1.1 m/sec LVIDs 2D 2.0 2.1 - 4.1 cm AV Peak PG 5.0 mmHg FS 2D 52.8 % LVOT Peak [place] 1.0 m/sec LVPWd 2D 0.8 0.6 - 1.1 cm LVOT Peak PG 4.0 mmHg IVSd 2D 0.9 0.6 - 1.1 cm MV E Peak [place] 0.8 m/sec IVS/LVPW 2D 1.1 MV A Peak [place] 0.7 m/sec AoR Diam 2D 3.7 2.0 - 3.7 cm MV E/A 1.1 LA/Ao 2D 1 0 - 1 MV Decel Time 141 msec EDV 2D 81.7 cm3 MV E/A 1.1 ESV 2D 8.6 cm3 TR Peak [place] 2.8 m/sec LA Dimen 2D 3.1 2.3 - 4.0 cm TR Peak PG 32.0 mmHg RVSP 35.0 mmHg Findings Left Ventricle: Normal left ventricular systolic function. Normal left ventricular cavity size. Normal left ventricular wall thickness. Ejection fraction is visually estimated at 65 %. Right Ventricle: Normal right ventricular size. Normal right ventricular systolic function. Left Atrium: The left atrium is normal in size. Right Atrium: The right atrium is normal in size. Mitral Valve: Mitral valve leaflets appear mildly thickened. Mild mitral annular calcification. Mild mitral valve regurgitation. Aortic Valve: No hemodynamically significant aortic stenosis by doppler. Aortic cusps appear mildly calcified. Trace aortic valve regurgitation. Tricuspid Valve: Normal appearance of the tricuspid valve. Estimated peak PA systolic pressure 35 mmHg. There is mild to moderate tricuspid regurgitation. Pericardium: Normal pericardium with no significant pericardial effusion. Aorta: Normal aortic root. IVC: Normal size and normal respiratory collapse consistent with normal right atrial pressure. Conclusions Normal left ventricular systolic function. Normal left ventricular cavity size. Normal left ventricular wall thickness. Ejection fraction is visually estimated at 65 %. Normal right ventricular size. Normal right ventricular systolic function. The left atrium is normal in size. The right atrium is normal in size. Mild mitral valve regurgitation. Estimated peak PA systolic pressure 35 mmHg. There is mild to moderate tricuspid regurgitation. No hemodynamically significant aortic stenosis by doppler. Trace aortic valve regurgitation. Normal pericardium with no significant pericardial effusion. Electronically Signed By: Ra Marcos 05-May-2016 21:46:54 -0800 Patient Name: JOHN CERVANTES Study Date: 05-May-[id number]
--- NOTE | 2016-05-05 23:18 | PN ---
Date/Time of Note Date/Time of Note DATE: 05/05/16 TIME: 23:17 Assessment/Plan VTE Prophylaxis VTE Prophylaxis Intervention: SCD's Lines/Catheters IV Catheter Type (from Nrsg): Peripheral IV Urinary Cath still in place: Yes Reason Cath still needed: other (indicate) Assessment/Plan Assessment/Plan 1. Sepsis with bandemia 2/2 UTI 2. UTI 3. Acute renal failure r/o CKD 4. NSTEMI versus troponin leak 5. Hypernatremia 6. Mild transaminitis 7. Chronic Parkinson's 8. 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 Seizures 10. Dementia 11. Depression 12. Chronic malnutrition PLAN: cont abx therapy / pancultures / Complete ACS r/o/ 2D echo / cardiology consult Continue home meds / fall and seizure precautions / serial labs pain control/ antiemetics/ antipyretics/ supportive care Poor prognosis. recommend hospice care Prophylaxis: Heparin / pepcid Exam/Review of Systems Vital Signs Vitals Vital Signs Date Time Temp Pulse Resp B/P Pulse Ox O2 Delivery O2 Flow Rate FiO2 05/05/16 21:40 100.3 84 18 77/41 99 05/05/16 09:30 Nasal Cannula 3.0 05/05/16 06:06 50 Exam Constitutional: alert (sarita open eyes), frail, other (contracted in both LE and LUE) Psych: other (Unable to assess) Head: normocephalic, other (+temporal msc wasting), No atraumatic Eyes: PERRL ENMT: No mucosa pink and moist (dry) Respiratory: crackles/rales, diminished breath sounds, labored breathing, wheezing Cardiovascular: murmurs/extra sounds, No regular rate and rhythm Gastrointestinal: bowel sounds, other (PEG tube noted, no cellulitis noted, nor oozing or discharge), soft Genitourinary - Male: other (penile orifice is widened with the presence of chronic martinez) Musculoskeletal: range of motion (reduced range of motion with chronic contractures in both LE and LUE. Patient only moves RUE spontaneously. ), No muscle tone (increased msc tone with chronic msc wasting ), No nl extremities to inspection Neurological: other, unresponsive (encephalopathic), No nl mental status Results Result Diagram: 05/05/16 0500 05/05/16 0500 Results 24 hrs Laboratory Tests Test 05/05/16 05:00 Activated Partial Thromboplast Time 37.8 H Alanine Aminotransferase (ALT/SGPT) 53 Albumin 2.2 #L Albumin/Globulin Ratio 0.64 Alkaline Phosphatase 101 Anion Gap 19 H Aspartate Amino Transf (AST/SGOT) 88 H Basophils # 0.0 Basophils % 0.1 Blood Morphology Comment Blood Urea Nitrogen 95 H Calcium Level 6.7 L Carbon Dioxide Level 23 Chloride Level 109 Creatine Kinase 1291 H Creatine Kinase Index 1.0 Creatinine 2.58 H Creatinine Kinase MB (Mass) 13.30 H Direct Bilirubin 0.00 Eosinophils # 0.0 Eosinophils % 0.1 Globulin 3.40 H Glucose Level 120 Hematocrit 22.3 #L Hemoglobin 7.4 #L INR International Normalized Ratio 1.32 Indirect Bilirubin 0.0 Lymphocytes # 0.7 L Lymphocytes % 3.6 L Mean Corpuscular Hemoglobin 29.7 Mean Corpuscular Hemoglobin Concent 33.0 Mean Corpuscular Volume 89.8 Mean Platelet Volume 7.9 Monocytes # 0.7 Monocytes % 3.9 Neutrophils # 16.9 H Neutrophils % 92.3 H Nucleated Red Blood Cells # 0.0 Nucleated Red Blood Cells % 0.0 Parathyroid Hormone (Intact) Platelet Count 170 # Platelet Estimate PLT APPEAR ADEQUATE Potassium Level 3.9 Prealbumin 8.9 L Prothrombin Time 16.5 H Prothrombin Time Ratio 1.3 Red Blood Count 2.49 #L Red Cell Distribution Width 16.3 H Sodium Level 147 H Total Bilirubin 0.0 L Total Protein 5.6 #L Troponin I 0.149 *H White Blood Count 18.3 #H Medications Medications Current Medications Aspirin (Halfprin) 81 mg DAILY PO Last administered on 05/05/16 09:40; Admin Dose 81 MG; Start 05/05/16 at 09:00 Docusate Sodium (Colace) 100 mg BID PO Last administered on 05/05/16 09:40; Admin Dose 100 MG; Start 05/04/16 at 21:30 Ondansetron HCl (Zofran Inj) 4 mg Q6H PRN IV NAUSEA AND/OR VOMITING; Start 05/04 at 21:30 Heparin Sodium (Porcine) 5000 unit 5,000 unit BID SC Last administered on 20:57; Admin Dose 5,000 UNIT; Start 05/05/16 at 09:00 Piperacillin Sod/ Tazobactam Sod (Zosyn 2.25gm/ 50ml (Pmx)) 50 ml @ 100 mls/hr Q8 IVPB Last administered on 05/05/16 22:16; Admin Dose 100 MLS/HR; Start at 22:00 Famotidine 20 mg 20 mg DAILY IV Last administered on 05/05/16 09:40; Admin Dose 20 MG; Start 05/05/16 at 09:00 Vancomycin HCl (Vancocin) 250 ml @ 125 mls/hr Q72H IVPB ; Start 05/07/16 at 20: 00 Acetaminophen (Tylenol Liquid) 650 mg Q6 PRN GTB PAIN AND OR ELEVATED TEMP Last administered on 05/05/16 21:10; Admin Dose 650 MG; Start 05/05/16 at 01:30 Influenza Virus Vaccine (Fluzone) 0.5 ml ONCE ONCE IM* ; Start 05/06/16 at 09:00 ; Stop 05/06/16 at 09:01 Ascorbic Acid (Vitamin C) 500 mg BID NGT Last administered on 05/05/16 20:56; Admin Dose 500 MG; Start 05/05/16 at 09:00 Carbidopa/Levodopa (Sinemet (25/ 100)) 1 tab Q12 NGT Last administered on 20:57; Admin Dose 1 TAB; Start 05/05/16 at 09:00 Ferrous Sulfate (Feosol Liquid Cup) 325 mg DAILY NGT Last administered on 09:38; Admin Dose 325 MG; Start 05/05/16 at 09:00 Levetiracetam (Keppra Liquid) 250 mg DAILY GTB Last administered on 05/05/16 09 :35; Admin Dose 250 MG; Start 05/05/16 at 09:00 Mirtazapine (Remeron) 7.5 mg HS NGT Last administered on 05/05/16 20:57; Admin Dose 7.5 MG; Start 05/05/16 at 21:00 Cholecalciferol (Vitamin D) 400 units DAILY GTB Last administered on 05/05/16 09:00; Admin Dose 400 UNITS; Start 05/05/16 at 09:00 Zinc Sulfate (Zinc Sulfate) 220 mg DAILY NGT Last administered on 05/05/16 09: 40; Admin Dose 220 MG; Start 05/05/16 at 09:00 Carbamazepine 100 mg 100 mg DAILY NGT Last administered on 05/05/16 10:34; Admin Dose 100 MG; Start 05/05/16 at 11:00 Sodium Chloride (05/05 NS) 1,000 ml @ 125 mls/hr Q8H IV Last administered on 05/05 16:30; Admin Dose 125 MLS/HR; Start 05/05/16 at 16:30 Miscellaneous Information (*Rx Drug Level Order Reminder*) VANCO RANDOM LEVEL... ONCE ONCE XX ; Start 05/06/16 at 05:00; Stop 05/06/16 at 05:01 CANDE CORTEZ MD May 05, 2016 23:17
[2016-05-06] MEDS: SOD CHLORIDE 0.45% 1,000 ML IV SCH ×4 (04:39→23:13)
[2016-05-06] MEDS: PIPER-TAZO 2.25 GM (PMX) 50 ML IVPB SCH (05:53)
[2016-05-06 06:04] LABS: BASOPHILS % 0.1 % (0.0-2.0); EOSINOPHILS # 0.1 10^3/ul (0.0-0.5); EOSINOPHILS % 0.5 % (0.0-7.0); HEMATOCRIT 22.8 % (42.0-52.0); HEMOGLOBIN 8.5 g/dl (14.0-18.0); LYMPHOCYTES # 1.3 10^3/ul (0.8-2.9); LYMPHOCYTES % 7.8 % (15.0-51.0); MEAN CORPUSCULAR HEMOGLOBIN 35.6 pg (29.0-33.0); MEAN CORPUSCULAR HGB CONC 37.1 g/dl (32.0-37.0); MONOCYTE # 0.6 10^3/ul (0.3-0.9); MONOCYTES % 3.2 % (0.0-11.0); NEUTROPHIL # 15.2 10^3/ul (1.6-7.5); NEUTROPHILS % 88.4 % (39.0-77.0); PLATELET COUNT 169 10^3/UL (140-440); RED BLOOD COUNT 2.38 10^6/ul (4.70-6.10); RED CELL DISTRIBUTION WIDTH 16.1 % (11.5-14.5); UNCORRECTED WBC 17.2 10^3/ul (4.8-10.8); WHITE BLOOD COUNT 17.2 10^3/ul (4.8-10.8)
[2016-05-06 06:07] LABS: CONDITION 1; LH ANALYZER COMMENTS 1; SUSPECT 1
[2016-05-06 06:15] LABS: INR 1.11; PROTIME 14.3 Sec (12.2-14.2); PT RATIO 1.1
[2016-05-06 06:16] LABS: PARTIAL THROMBOPLASTIN TIME 36.5 Sec (25.0-35.0)
[2016-05-06 06:34] LABS: ALBUMIN 2.5 g/dl (3.3-4.9)
[2016-05-06 06:35] LABS: POTASSIUM 4.9 mmol/L (3.5-5.1)
[2016-05-06 06:37] LABS: BILIRUBIN,INDIRECT 0.1 mg/dl (0-1.1); BILIRUBIN,TOTAL 0.1 mg/dl (0.2-1.3); CREATININE 2.16 mg/dl (0.61-1.24)
[2016-05-06 06:38] LABS: ALBUMIN/GLOBULIN RATIO 0.6; CALCIUM 6.8 mg/dl (8.4-10.2); TOTAL PROTEIN 6.6 g/dl (6.1-8.1)
[2016-05-06 06:54] LABS: MAGNESIUM 2.6 mg/dl (1.7-2.5); PHOSPHORUS 3.9 mg/dl (2.5-4.9)
[2016-05-06 07:04] LABS: ADD UMIC YES; URINE BILIRUBIN (Dip) NEGATIVE (NEGATIVE); URINE BLOOD (Dip) 3+ (NEGATIVE); URINE COLOR YELLOW (YELLOW); URINE GLUCOSE (Dip) NEGATIVE (NEGATIVE); URINE KETONES (Dip) NEGATIVE (NEGATIVE); URINE LEUKOCYTE ESTERASE (Dip) 3+ (NEGATIVE); URINE NITRITE (Dip) NEGATIVE (NEGATIVE); URINE TOTAL PROTEIN (Dip) 1+ (NEGATIVE); URINE UROBILINOGEN (Dip) 0.2 E.U./dL (0.1-1.0)
[2016-05-06 07:24] LABS: BACTERIA,URINE FEW
[2016-05-06] MEDS ORDERED: SOD CHLORIDE 0.9% 1,000 ML IV ONE (08:30)
[2016-05-06 08:34] VITALS: BP 77/49; RESP 18
[2016-05-06] MEDS: ACETAMINOPHEN 650MG/20.3ML CUP GTB PRN (08:42)
[2016-05-06] MEDS: ASCORBIC ACID 500 MG TAB NGT SCH ×2 (08:46→20:40)
[2016-05-06] MEDS: CHOLECALCIFEROL 400 UNITS TAB GTB SCH (08:46)
[2016-05-06] MEDS: CARBIDOPA/LEVODOPA (25/100) TAB NGT SCH ×2 (08:46→20:56)
[2016-05-06] MEDS: DOCUSATE SODIUM 100 MG CAP PO SCH ×3 (08:47→20:59)
[2016-05-06] MEDS: ASPIRIN (EC) 81 MG TAB PO SCH (08:47)
[2016-05-06] MEDS: ZINC SULFATE 220 MG CAP NGT SCH (08:47)
[2016-05-06] MEDS: LEVETIRACETAM (100 MG/ML) 5ML CUP GTB SCH ×3 (08:48→20:40)
[2016-05-06] MEDS: FERROUS SULFATE 60 MG/ML 5ML CUP NGT SCH (08:48)
[2016-05-06] MEDS: FAMOTIDINE 20 MG INJ IV SCH (08:48)
[2016-05-06] MEDS: HEPARIN 5,000 UNIT/0.5 ML SYG SC SCH ×2 (08:49→20:50)
[2016-05-06 09:00] VITALS: BP 99/51; PULSE 72; RESP 18
[2016-05-06] MEDS ORDERED: INFLUENZA VIRUS VACCINE 0.5 ML (DISPENSING) IM* ONE (09:00)
[2016-05-06 11:13] VITALS: BP 95/78; PULSE 78
[2016-05-06] MEDS: carBAMAZepine SUSP 20 MG/ML POSYG NGT SCH ×2 (11:33→18:06)
--- NOTE | 2016-05-06 12:17 | PN ---
DATE: 05/06/2016 SUBJECTIVE: The patient remains critical and ill. The patient remains hypertensive, febrile, recei ving a fluid bolus. No other events noted. OBJECTIVE: VITAL SIGNS: Blood pressure 99/51, respirations 18, pulse 72, temperature 98.8. I's AND O'S: The patient had 2.9 L in with 500 mL urinary output. HEENT: Head is normocephalic. NECK: Supple. HEART: Regular rate. LUNGS: Show diminished breath sounds at base. ABDOMEN: Soft, nontender to palpation without rebound or guarding. EXTREMITIES: Negative for clubbing, cyanosis, or edema. DERMATOLOGIC: No rashes. MUSCULOSKELETAL: No joint effusions. NEUROLOGIC: The patient has limited exam due to lack of cooperation. GENITOURINARY: Positive Shine catheter. LABORATORY DATA: Shows sodium 149, potassium 4.9, creatinine 112, BUN is 75, creatinine 2.16, calci um 6.8. White count 17.2, hemoglobin 8.5, hematocrit 32.8, platelet count is 169. Urinalysis shows greater than 200 WBCs, a FENa of less than 1%. Renal ultrasound shows bilateral hydronephrosis and hydroureter, echogenic material within the bladder and complex cystic solid mass in the kidney, wor risome for kidney neoplasm. ASSESSMENT AND PLAN: 1. Nonoliguric acute kidney injury on top of chronic kidney disease stage III with a previous basel ine creatinine 1.1 and 1.3 mg/dL. Etiology of acute kidney injury is secondary to septic acute kidn ey injury, bilateral hydroureter, hydronephrosis. The patient's renal ultrasound shows moderate moreno ateral hydronephrosis and hydroureter. The patient's urinalysis also shows a FENa less than 1%, pos itive pyuria. The urinalysis findings are consistent with a septic acute kidney injury, causing rel atives decrease in effective arterial perfusion of the kidneys in conjunction with obstruction patho logy from the renal ultrasound. PLAN: 1. The recommendation at this point would be to get a urology consult for evaluation. Would get a CT scan of the abdomen and pelvis. Once the patient is clinically stable, will continue IV antibiot ics to treat underlying sepsis. Continue IV fluids and hydration with goal to maintain MAP of over 65. Otherwise, continue current treatment plan, supportive care, renally dose all meds. 2. Bilateral hydronephrosis, hydroureter. The patient may have an obstructing lesion, possible sto ne. Plan is to get a CT scan of abdomen and pelvis. I would also follow up with urology for a cons ult and monitor. Continue IV hydration. 3. Complex cystic renal mass concerning for possible neoplasm. Continue to monitor. Follow up CT scan, follow up with urology. 4. Hypernatremia. The patient's free water deficit of approximately 2 liters. Continue current IV fluids and monitor. 4. Hypertension secondary to sepsis. Continue bolus of IV fluids. Agree with our cardiology colle agues. 5. Mineral bone disorder. Continue to monitor calcium and phosphorus levels. No need for phosphat e binders. 6. Anemia of chronic disease. Continue to monitor H and H levels. 7. Severe sepsis. Etiology is unclear, possible pneumonia, possible urinary tract infection and cu ltures have been reviewed. Continue broad spectrum antibiotics, IV fluids. 8. Acute encephalopathy. Etiology is toxic metabolic. Continue to monitor. 9. Elevated troponins non-ST elevation myocardial infarction, possibly type 2 in the setting of sep sis. Continue medical management. 10. Seizure disorder. Continue medical management. 11. Parkinson's disorder. Continue current treatment plan. Dictated By: JESSICA HORTON/ERICA Conf#: [id number] DID#: [id number]
--- NOTE | 2016-05-06 12:54 | PN ---
DATE: 05/06/2016 SUBJECTIVE: No acute changes. Patient is spiking fevers with a T-max of 100.7 this morning. He is lying comfortably in bed. LABORATORY DATA: WBC 17.2, platelets 169, neutrophils 88.4. No bands. BUN 75, creatinine 2.16. MICROBIOLOGY: Blood cultures growing E. coli, susceptible to tobramycin, gentamicin, cefotaxime and Ancef. Urine culture growing Morganella morganii, susceptible to cefepime, ceftazidime, tobramycin . Stool for C. diff came back negative. Influenza swab was negative. DIAGNOSTICS: Renal ultrasound revealed moderate bilateral hydronephrosis and hydroureter, large homar unt of echogenic material within the urinary bladder, questionable mass. Large complex cystic and s olid mass in the upper pole of the right kidney, suspicious of kidney neoplasm. ANTIMICROBIALS: The patient is on Zosyn, status post vancomycin. PHYSICAL EXAMINATION: GENERAL: This is a fragile, elderly man who is lying comfortably in bed. HEENT: Head atraumatic, normocephalic. Sclerae anicteric. Buccal mucosa dry. NECK: Supple, trachea midline. CHEST: Rise symmetrical. Breath sounds diminished. HEART: S1, S2. ABDOMEN: Soft. Bowel tones present. EXTREMITIES: No cyanosis. ASSESSMENT: 1. Sepsis with multidrug-resistant Escherichia coli septicemia. 2. Urinary tract infection, likely acute pyelonephritis. 3. Bilateral hydronephrosis and hydroureter. 4. Right kidney mass suspicious for kidney neoplasm. 5. Dysphagia. 6. Acute renal failure. 7. History of cerebrovascular accident and Parkinson dementia. 8. Status post percutaneous endoscopic gastrostomy placement. PLAN: The patient remains stable with on and off fevers. We are going to change antibiotics to cef epime. Repeat blood cultures. Consider urology evaluation. Dictated By: OLIVA LEAVITT EXERCISER HORSE for LAVELL BUSTILLO/ERICA Conf#: [id number] DID#: [id number]
[2016-05-06] MEDS: CEFEPIME 1GM/50 ML (PMX) 50 ML IVPB SCH (13:52)
[2016-05-06 13:56] VITALS: BP 93/55; PULSE 64
--- NOTE | 2016-05-06 14:07 | CONS ---
DATE OF ADMISSION: 05/04/2016 DATE OF CONSULTATION: 05/06/2016 REQUESTING PHYSICIAN: Dr. Lan. HISTORY OF PRESENT ILLNESS: This is a 80-year-old male who is a resident of a [facility] that is [facility] and who was brought to [facility] because of fever, dec reased O2 saturation and tachycardia. The patient was found to have a urinary tract infection and s epsis and he underwent a renal ultrasound which showed a moderate bilateral hydronephrosis and hydro ureter and large amount of echogenic material within the urinary bladder which may represent debris versus a mass. A large complex cystic and solid mass in the upper pole of the right kidney is suspi cious for kidney neoplasms. Further recommendation was to do a CT scan. The mass in the kidney did measure 10.1 x 7.2 x 9.2 cm. The patient is a DNR and has multiple other problems. He has a histo ry of also acute renal failure and chronic kidney disease, non-STEMI versus troponin leak, hypernatr emia, mild transaminitis, chronic Parkinson's disease, prior cerebrovascular accident with residual left-sided weakness and dysphagia status post gastrostomy tube feeding, history of seizures, dementi a, depression and chronic malnutrition. The patient himself is not capable of giving any history. All the information was obtained from reviewing his medical record. SOCIAL HISTORY: He lives in the shelter. He does not smoke and does not drink. PAST SURGICAL HISTORY: Only the PEG tube. PHYSICAL EXAMINATION: GENERAL: Reveals a 80-year-old male who is nonverbal. His eyes somehow closed, his weight is 48.8 kg and he is 60 inches tall. VITAL SIGNS: Temperature is 97.8, the pulse 78, respiration is 18, blood pressure 95/78. The patient does have a lot of contractures of his upper and lower extremities. NECK: Supple. HEART: Regular. LUNGS: Appear to be clear. ABDOMEN: He does have a G-tube in place. There is no abdominal mass palpable and there are no scar s on the abdomen. The patient does have a stage III decubitus ulcer in the back in the sacral area. EXTERNAL GENITALIA: Normal testis, but the urethra is eroded for about 4 cm proximal to the meatus, and he does have an indwelling Shine catheter that is draining clear urine. EXTREMITIES: Lower extremities are contracted and needs help to be able to separate. RECTAL: Examination revealed the prostate is not large and it is soft. LABORATORY DATA: His CBC shows a white count of 17.2, hemoglobin 8.5, hematocrit 22.8. The BUN is 75, the creatinine 2.16, sodium 149, potassium 4.9, chloride 112, CO2 21. He has positive blood cul tures for E. coli and also urine culture that is positive for Morganella morganii. The patient is t reated with the antibiotic cefepime. IMPRESSION: Urinary tract infection and bilateral hydronephrosis, debris in the bladder, most likel y secondary to the infection and right renal mass, most likely representing neoplasm. The patient i s DNR and even if there is a cancerous tumor in the right kidney with his general condition the DNR status, most likely just leave it alone and no surgical intervention for that. However, to just try to clarify that further, we will do a CT scan of the abdomen and pelvis without contrast. Dictated By: MELISSA LABOY/ERICA Conf#: [id number] DID#: [id number]
--- NOTE | 2016-05-06 18:45 | PN ---
Date/Time of Note Date/Time of Note DATE: 05/06/16 TIME: 18:41 Assessment/Plan VTE Prophylaxis VTE Prophylaxis Intervention: SCD's Lines/Catheters IV Catheter Type (from Nrsg): Peripheral IV Urinary Cath still in place: Yes Reason Cath still needed: other (indicate) Assessment/Plan Assessment/Plan IMPRESSION 1. Sepsis with bandemia 2/2 UTI 2. 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 Acute renal failure r/o CKD 4. NSTEMI versus troponin leak 5. Hypernatremia 6. Mild transaminitis 7. Chronic Parkinson's 8. 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 Seizures 10. Dementia 11. Depression 12. Chronic malnutrition PLAN: cont abx therapy f/u final culture results Appreciate input from Dr. Kirkpatrick, Urology Complete ACS r/o/ 2D echo / cardiology on board Continue home meds / fall and seizure precautions / serial labs pain control/ antiemetics/ antipyretics/ supportive care Will discuss about hospice care Prophylaxis: Heparin / pepcid Exam/Review of Systems Vital Signs Vitals Vital Signs Date Time Temp Pulse Resp B/P Pulse Ox O2 Delivery O2 Flow Rate FiO2 05/06/16 16:59 3.0 05/06/16 13:56 98.8 64 93/55 05/06/16 09:25 Nasal Cannula 05/06/16 09:00 18 98 05/05/16 06:06 50 Intake and Output 05/05/16 05/05/16 05/06/16 15:00 23:00 07:00 Intake Total 1000 ml 1160 ml 835 ml Output Total 100 ml 450 ml Balance 1000 ml 1060 ml 385 ml Results Result Diagram: 05/06/16 0501 05/06/16 0501 Results 24 hrs Laboratory Tests Test 05/06/16 04:00 05/06/16 05:01 Urine Random Creatinine 19.11 L Urine Random Sodium 29 L Urine Total Protein Activated Partial Thromboplast Time 36.5 H Alanine Aminotransferase (ALT/SGPT) 33 Albumin 2.5 L Albumin/Globulin Ratio 0.60 Alkaline Phosphatase 132 H Anion Gap 21 H Aspartate Amino Transf (AST/SGOT) 144 #H Basophils # 0.0 Basophils % 0.1 Blood Morphology Comment Blood Urea Nitrogen 75 H Calcium Level 6.8 L Carbon Dioxide Level 21 Chloride Level 112 H Creatinine 2.16 H Direct Bilirubin 0.00 Eosinophils # 0.1 Eosinophils % 0.5 Globulin 4.10 H Glucose Level 95 Hematocrit 22.8 L Hemoglobin 8.5 L INR International Normalized Ratio 1.11 Indirect Bilirubin 0.1 Lymphocytes # 1.3 Lymphocytes % 7.8 L Magnesium Level 2.6 H Mean Corpuscular Hemoglobin 35.6 H Mean Corpuscular Hemoglobin Concent 37.1 H Mean Corpuscular Volume 96.0 Mean Platelet Volume 8.0 Monocytes # 0.6 Monocytes % 3.2 Neutrophils # 15.2 H Neutrophils % 88.4 H Nucleated Red Blood Cells # 0.0 Nucleated Red Blood Cells % 0.0 Phosphorus Level 3.9 Platelet Count 169 Potassium Level 4.9 Prothrombin Time 14.3 H Prothrombin Time Ratio 1.1 Random Vancomycin Level 9.9 Red Blood Count 2.38 L Red Cell Distribution Width 16.1 H Sodium Level 149 H Total Bilirubin 0.1 L Total Protein 6.6 # White Blood Count 17.2 H Medications Medications Current Medications Aspirin (Halfprin) 81 mg DAILY PO Last administered on 05/06/16 08:47; Admin Dose 81 MG; Start 05/05/16 at 09:00 Docusate Sodium (Colace) 100 mg BID PO Last administered on 05/06/16 08:47; Admin Dose 100 MG; Start 05/04/16 at 21:30 Ondansetron HCl (Zofran Inj) 4 mg Q6H PRN IV NAUSEA AND/OR VOMITING; Start 05/04 at 21:30 Heparin Sodium (Porcine) (Heparin (5000 Units/0.5 ml)) 5,000 unit BID SC Last administered on 05/06/16 08:49; Admin Dose 5,000 UNIT; Start 05/05/16 at 09:00 Famotidine (Pepcid Iv) 20 mg DAILY IV Last administered on 05/06/16 08:48; Admin Dose 20 MG; Start 05/05/16 at 09:00 Acetaminophen (Tylenol Liquid) 650 mg Q6 PRN GTB PAIN AND OR ELEVATED TEMP Last administered on 05/06/16 08:42; Admin Dose 650 MG; Start 05/05/16 at 01:30 Ascorbic Acid (Vitamin C) 500 mg BID NGT Last administered on 05/06/16 08:46; Admin Dose 500 MG; Start 05/05/16 at 09:00 Carbidopa/Levodopa (Sinemet (25/ 100)) 1 tab Q12 NGT Last administered on 08:46; Admin Dose 1 TAB; Start 05/05/16 at 09:00 Ferrous Sulfate (Feosol Liquid Cup) 325 mg DAILY NGT Last administered on 08:48; Admin Dose 325 MG; Start 05/05/16 at 09:00 Levetiracetam (Keppra Liquid) 250 mg DAILY GTB Last administered on 05/06/16 08 :48; Admin Dose 250 MG; Start 05/05/16 at 09:00 Mirtazapine (Remeron) 7.5 mg HS NGT Last administered on 05/05/16 20:57; Admin Dose 7.5 MG; Start 05/05/16 at 21:00 Cholecalciferol (Vitamin D) 400 units DAILY GTB Last administered on 05/06/16 08:46; Admin Dose 400 UNITS; Start 05/05/16 at 09:00 Zinc Sulfate (Zinc Sulfate) 220 mg DAILY NGT Last administered on 05/06/16 08: 47; Admin Dose 220 MG; Start 05/05/16 at 09:00 Carbamazepine 100 mg 100 mg DAILY NGT Last administered on 05/06/16 11:33; Admin Dose 100 MG; Start 05/05/16 at 11:00 Sodium Chloride (1/2 NS) 1,000 ml @ 125 mls/hr Q8H IV Last administered on 05/06 15:08; Admin Dose 125 MLS/HR; Start 05/05/16 at 16:30 Influenza Virus Vaccine 0.5 ml 0.5 ml ONCE ONCE IM* ; Start 05/08/16 at 10:00; Stop 05/08/16 at 10:01 Cefepime HCl (Maxipime 1gm/50 ml (Pmx)) 50 ml @ 100 mls/hr Q24H IVPB Last administered on 05/06/16 13:52; Admin Dose 100 MLS/HR; Start 05/06/16 at 14:00 CANDE CORTEZ MD May 06, 2016 18:45
[2016-05-06 20:40] VITALS: BP 112/60; RESP 21
[2016-05-06] MEDS: MIRTAZAPINE 15 MG TAB NGT SCH (20:56)
[2016-05-07 05:47] LABS: BASOPHILS % 0.2 % (0.0-2.0); EOSINOPHILS # 0.1 10^3/ul (0.0-0.5); EOSINOPHILS % 1.4 % (0.0-7.0); HEMATOCRIT 20.6 % (42.0-52.0); HEMOGLOBIN 7.5 g/dl (14.0-18.0); LYMPHOCYTES % 12.1 % (15.0-51.0); MEAN CORPUSCULAR HEMOGLOBIN 35.5 pg (29.0-33.0); MEAN CORPUSCULAR HGB CONC 36.2 g/dl (32.0-37.0); MEAN PLATELET VOLUME 8.3 fl (7.4-10.4); MONOCYTE # 0.6 10^3/ul (0.3-0.9); MONOCYTES % 6.6 % (0.0-11.0); NEUTROPHIL # 6.7 10^3/ul (1.6-7.5); NEUTROPHILS % 79.7 % (39.0-77.0); PLATELET COUNT 147 10^3/UL (140-440); RED BLOOD COUNT 2.11 10^6/ul (4.70-6.10); RED CELL DISTRIBUTION WIDTH 16.3 % (11.5-14.5); UNCORRECTED WBC 8.5 10^3/ul (4.8-10.8); WHITE BLOOD COUNT 8.5 10^3/ul (4.8-10.8)
[2016-05-07 05:55] LABS: POTASSIUM 3.6 mmol/L (3.5-5.1)
[2016-05-07 05:57] LABS: CREATININE 1.71 mg/dl (0.61-1.24)
[2016-05-07 05:58] LABS: CALCIUM 6.8 mg/dl (8.4-10.2); PHOSPHORUS 2.7 mg/dl (2.5-4.9)
[2016-05-07 05:59] LABS: MAGNESIUM 2.6 mg/dl (1.7-2.5)
[2016-05-07 06:18] LABS: CONDITION 1; LH ANALYZER COMMENTS 1
[2016-05-07] MEDS: ACETAMINOPHEN 650MG/20.3ML CUP GTB PRN (06:28)
--- NOTE | 2016-05-07 06:43 | PN ---
DATE: 05/06/2016 CARDIOLOGY FOLLOWUP SUBJECTIVE: Discussed with the staff. The patient remains nonverbal, does not answer any of my que stions. No report of chest pain or pressure. As mentioned, the patient has not been responsive. MEDICATIONS: Reviewed as per medication reconciliation, was personally reviewed. MEDICATIONS: Reviewed, which includes: 1. Cefepime. 2. Remeron. 3. Keppra. 4. Tegretol. 5. Aspirin. 6. Sinemet. 7. Iron. PHYSICAL EXAMINATION: VITAL SIGNS: Temperature 98.8, T-max is 100.7, heart rate of 64, blood pressure 93/____, respirator y rate of 18. HEENT: Normocephalic, atraumatic. ____ gentleman. Pupils are equal. Eyes are open. CARDIOVASCULAR: Regular rate and rhythm. PULMONARY: With no wheezes anteriorly. GASTROINTESTINAL: Soft, nontender. Status post PEG placement. EXTREMITIES: Positive for lower extremity edema. NEUROLOGIC: Awake, does not answer any questions. LABORATORY: Echocardiogram done on 05/04/2016 shows ejection fraction of 65%. Laboratory shows WBC of 17.2, hemoglobin 8.5, platelet 169. Sodium 149, potassium 4.9, BUN of 75, creatinine 2.16, gluc ose of 95. CK total is 1291. Albumin is 2.5. Troponin of 0.149. ASSESSMENT AND PLAN: 1. Abnormal troponin, does not appear to be related to acute coronary syndrome, most likely related to ___ versus others including possible sepsis. 2. Acute renal failure. Follow up with renal. RECOMMENDATIONS: 1. IV fluid as per renal. 2. Bilateral hydronephrosis. 3. History of hypotension secondary to possible sepsis. 4. Urinary tract infection. 5. History of CVA. 5. Dementia. 6. Anemia. RECOMMENDATIONS: Code status DNR. Aspirin will be continued. No indication for beta racheal at th is point. ____ per renal recommendations. ____Antibiotic as per internal medicine as well as ID's recommendation. Dictated By: DEON SOLIZ MD AV/ERICA Conf#: [id number] DID#: [id number]
[2016-05-07 08:14] VITALS: BP 93/51; RESP 77
[2016-05-07] MEDS: HEPARIN 5,000 UNIT/0.5 ML SYG SC SCH ×2 (08:20→20:51)
[2016-05-07] MEDS: FAMOTIDINE 20 MG INJ IV SCH (08:20)
[2016-05-07] MEDS: CARBIDOPA/LEVODOPA (25/100) TAB NGT SCH ×2 (08:21→20:52)
[2016-05-07] MEDS: LEVETIRACETAM (100 MG/ML) 5ML CUP GTB SCH ×3 (08:21→20:51)
[2016-05-07] MEDS: FERROUS SULFATE 60 MG/ML 5ML CUP NGT SCH (08:21)
[2016-05-07] MEDS: ASCORBIC ACID 500 MG TAB NGT SCH ×2 (08:21→20:52)
[2016-05-07] MEDS: ASPIRIN (EC) 81 MG TAB PO SCH (08:21)
[2016-05-07] MEDS: DOCUSATE SODIUM 100 MG CAP PO SCH (08:22)
[2016-05-07] MEDS: CHOLECALCIFEROL 400 UNITS TAB GTB SCH (08:22)
[2016-05-07] MEDS: ZINC SULFATE 220 MG CAP NGT SCH (08:22)
--- NOTE | 2016-05-07 10:15 | PN ---
DATE: 05/07/2016 CARDIOLOGY FOLLOWUP PROGRESS NOTE SUBJECTIVE: Discussed with the staff. The patient remains nonverbal. Had a fever overnight. MEDICATIONS: Reviewed. PHYSICAL EXAMINATION: VITAL SIGNS: Temperature 100.1, T-max is 100.7, heart rate of 77, blood pressure 93/54, respiratory rate of 20. HEENT: Normocephalic, atraumatic. Pupils are equal. CARDIOVASCULAR: Regular rate and rhythm. Systolic murmur. PULMONARY: With no wheezes anteriorly, mild diffuse rhonchi. GASTROINTESTINAL: Soft, nontender. Status PEG placement. EXTREMITIES: With positive lower extremity edema. NEUROLOGIC: Awake, does not answer any questions. PSYCHIATRIC: Appears to be calm at this point. LABORATORY: WBC of 8.5, hemoglobin 7.5, platelet 147. Sodium 145, potassium 3.6, BUN of 59, creati nine 1.71, glucose of 108. ASSESSMENT AND PLAN: 1. Mildly abnormal troponin consistent with false positive troponin, probably related to renal fail ure as well as rhabdo. 2. Acute renal failure. 3. Sepsis and UCI and gram-negative karrie bacteremia. 4. Acute renal failure, currently slowly improving. 5. Severe encephalopathy. 6. Dysphagia, status post percutaneous endoscopic gastrostomy placement. 7. History of cerebrovascular accident. 8. History of seizure disorder. 9. History of dementia. 10. 11. Renal mass, possible neoplasm. 12. Severe anemia. RECOMMENDATIONS: Because of the anemia, will discontinue the aspirin. Will hold the aspirin until we make sure there is no bleeding sign. Antibiotic is being managed as per internal medicine and ID 's recommendations. Code status DNR. Conservative therapy only at this point. Dictated By: DEON SOLIZ MD AV/ERICA Conf#: [id number] DID#: [id number] CC: CANDE CORTEZ MD;*EndCC*
--- NOTE | 2016-05-07 11:14 | PN ---
DATE: 05/07/2016 SUBJECTIVE: The patient remains febrile. No other acute events noted. No hemoptysis, hematemesis or hematochezia. OBJECTIVE: VITAL SIGNS: Blood pressure 93/51, respiration is 77, pulse 20, temperature 100.1. HEENT: Head is normocephalic. NECK: Supple. HEART: Regular rate. LUNGS: Show diminished breath sounds at the base. ABDOMEN: Soft, nontender to palpation without rebound or guarding. EXTREMITIES: Negative for clubbing, cyanosis, no edema. The patient has lower extremity contractur es. DERMATOLOGIC: No rashes. MUSCULOSKELETAL: No joint effusions. NEUROLOGIC: No change in exam. GENITOURINARY EXAM: The patient has a urethra with erosion about 4 cm proximal to the meatus. LABORATORY DATA: Shows sodium of 145, potassium 2.6, chloride 116, 2BUN 59, creatinine 1.71, magnes ium 2.6. White count 8.5, hemoglobin 7.5, hematocrit 20.6, platelet count is 127. ASSESSMENT AND PLAN: 1. Nonoliguric acute kidney injury on top of chronic kidney disease stage III with previous baselin e creatinine between 1.1 and 1.3 mg/dL. Etiology of acute kidney injury is multifactorial secondary to septic acute kidney injury, bilateral hydroureter, hydronephrosis. The patient's renal function has been improving with IV hydration. The patient has also been seen by urologist, Dr. Kirkpatrick, and CT scan of the abdomen is pending. At this point, continue current treatment plan. Continue IV fl uids, continue IV antibiotics, treat underlying sepsis and monitor closely. 2. Bilateral hydronephrosis, hydroureter. The patient may have an obstructive lesion. CT scan abd omen and pelvis is pending. Follow up with urology. 3. Complex cystic renal mass concerning for possible neoplasm. Follow up CT of the abdomen and pel vis. 4. Hypernatremia, improving. Continue IV fluids at current rate. 5. Hypotension secondary to sepsis. Continue IV fluids. 6. Severe sepsis secondary to possible pneumonia, possible urinary tract infection. The patient's blood cultures have been positive. Continue current treatment plan. Continue IV antibiotics, IV fl uids. 7. Anemia of chronic disease. Continue to monitor hemoglobin and hematocrit levels. 8. Mineral bone disorder. Continue to monitor calcium and phosphorous levels, no need for phosphat e binders. 9. Acute encephalopathy, etiology is toxic metabolic. Continue to monitor. 10. Elevated troponin, non-ST elevation myocardial infarction, possibly type 2. Continue medical m anagement. 11. Seizure disorder. Continue current treatment plan. 12. Parkinson's. Continue parkinsonian medications. Dictated By: JESSICA PEARSON DO NR/NTS Conf#: [id number] DID#: [id number] CC: NEFTALI MISHRA MD;*EndCC*
[2016-05-07] MEDS: carBAMAZepine SUSP 20 MG/ML POSYG NGT SCH ×3 (11:33→19:05)
--- NOTE | 2016-05-07 12:30 | PN ---
DATE: 05/07/2016 SUBJECTIVE: No changes. The patient is lying comfortably in bed. T-max today 100.1. LABORATORY: WBC today 8.5. Neutrophils decreased to 79.7, no bands. BUN 59, creatinine 1.71. MICROBIOLOGY: Repeat blood cultures pending. Blood cultures on admission grew multi-drug resistant Escherichia coli. Urine culture growing Proteus mirabilis. ANTIMICROBIALS: The patient is on: 1. IV cefepime. 2. Status post vancomycin and Zosyn. PHYSICAL EXAMINATION: GENERAL: This is a fragile, elderly man who is lying comfortably in bed. HEENT: Head atraumatic, normocephalic. Sclerae anicteric. Buccal mucosa dry. NECK: Supple, trachea midline. CHEST: Rise symmetrical. Breath sounds diminished at the bases. HEART: S1, S2. ABDOMEN: Soft, bowel tones present. EXTREMITIES: Without cyanosis. ASSESSMENT: 1. Sepsis with multi-drug resistant Escherichia coli septicemia. 2. Proteus mirabilis urinary tract infection. 3. Bilateral hydronephrosis. 4. Right renal mass, likely neoplastic. 5. Dysphagia with percutaneous endoscopic gastrostomy. 6. Acute renal failure. 7. History of cerebrovascular accident and Parkinson's dementia. PLAN: The patient remains clinically unchanged, pending repeat blood cultures. He is on appropriat e antimicrobials. Urology recommendations noted. No recommendations for surgical interventions. P ending CT of the abdomen and pelvis. Dictated By: OLIVA LEAVITT FORGING ENGINEER for LAVELL BUSTILLO/ERICA Conf#: [id number] DID#: [id number]
--- NOTE | 2016-05-07 12:31 | RADRPT ---
PROCEDURE: CT Abdomen and Pelvis without contrast CLINICAL INDICATION: Right renal tumor TECHNIQUE: Transaxial images were obtained through the abdomen and pelvis on a multi-slice scanner without the intravenous contrast administration. no oral contrast had previously been given. Sagitt al and coronal re-formations were subsequently reconstructed. One or more of the following dose reduction techniques were used: - Automated exposure control. - Adjustment of the mA and/or kV according to patient size. - Use of iterative reconstruction technique. Radiation dose: CTDIvol = 9.49 mGy; DLP = 517.31 mGy-cm. COMPARISON: Renal sonogram done 05/05/2016. The previous sonogram demonstrated a 10 cm mixed cystic and solid lesion within the superior pole of the right kidney as well as bilateral moderate hydronephrosis/hydroureter. Debris was seen within the bladder. FINDINGS: Lung bases: Small bilateral gravitating pleural fluid accumulations are evident with subsegmental at electasis seen within the lower lobes. The heart is enlarged with atherosclerotic vascular calcific ation. Liver: The liver is borderline enlarged with no focal lesion identified. Gallbladder: There is cholelithiasis. The gallbladder wall does not appeared thickened. Bile ducts: The intra and extrahepatic bile ducts are normal in caliber. Pancreas: Appears normal with no mass or inflammation evident. Spleen: Normal in size with no focal lesion. Adrenals: There is a 2.7 x 2.5 x 2.0 cm left adrenal mass that measures 34 HU. Kidneys, ureters and bladder: An 8.8 x 8.2 x 7.5 cm neural mass is seen extend superiorly off the zazueta perior pole right kidney that measures 20 HU with a somewhat thickened wall. There is mild right an d moderate left pelvocaliectasis and ureterectasis. The left kidney otherwise appears unremarkable. A Shine catheter is seen within a poorly distended bladder along with some air which is likely iatr ogenic. The bladder wall is considerably thickened. Reproductive organs: The prostate is not enlarged. Stomach and bowel: There is substantial stool within the colon but there is no evidence of bowel obs truction or inflammation. A gastrostomy tube is seen to be in place. Appendix: There are no findings to suggest appendicitis. Peritoneum: No free intraperitoneal fluid or air is identified. Aorta: There is aortic tortuosity and extensive vascular calcification is noted. No abdominal aorti c aneurysm is evident. IVC: Unremarkable. Lymph nodes: No pathologically enlarged nodes are identified. Osseous structures: There is a severe compression fracture deformity at T12 with retropulsion of the posterior aspect. This is not appear acute and the posterior osseous elements appear intact. Mild diffuse degenerative anterior spondylosis is noted. Soft tissues: Stranding is seen through the deep and subcutaneous fat suggesting anasarca. IMPRESSION: 1. There is a complex 8.8 x 8.2 x 7.5 cm hypodense solid versus complex cystic mass extending super iorly off the superior pole right kidney measuring 20 HU. The wall is thicker than a simple cyst. 2. There is moderate left pelvocaliectasis, mild right pelvocaliectasis with moderate bilateral hyd roureter. The bladder contains a Shine catheter and is suboptimally distended and the bladder wall appears considerably thickened. The prostate is not enlarged. 3. 2.7 x 2.5 x 2.0 cm left adrenal mass that measures 34 HU. Neoplasm is suspected. 4. A gastrostomy tube is seen to be in place. Substantial stool is seen to the colon without evide nce of bowel obstruction or inflammation. 5. Cholelithiasis not associated with gallbladder wall thickening or bile duct dilatation. 6. Fairly extensive atherosclerotic vascular calcification. 7. Small bilateral gravitating pleural fluid accumulations with subsegmental atelectasis involving the lower lobes bilaterally. 8. Cardiomegaly with atherosclerotic vascular calcification. 9. Moderately severe old appearing compression fracture deformity involving T12 with slight retropu lsion of the posterior body. 10. Anasarca. Physician Mitch Date Time Electronically viewed and signed by Physician Mitch on 05/07/2016 12:31 /
[2016-05-07] MEDS: CEFEPIME 1GM/50 ML (PMX) 50 ML IVPB SCH (15:59)
[2016-05-07] MEDS: MIDODRINE 5 MG TAB GTB SCH (18:16)
--- NOTE | 2016-05-07 19:23 | PN ---
Date/Time of Note Date/Time of Note DATE: 05/07/16 TIME: 19:22 Assessment/Plan VTE Prophylaxis VTE Prophylaxis Intervention: SCD's Lines/Catheters IV Catheter Type (from Nrs): Peripheral IV Urinary Cath still in place: Yes Assessment/Plan Assessment/Plan IMPRESSION 1. Sepsis with bandemia 2/2 UTI 2. 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 Acute renal failure r/o CKD 4. NSTEMI versus troponin leak 5. Hypernatremia 6. Mild transaminitis 7. Chronic Parkinson's 8. 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 Seizures 10. Dementia 11. Depression 12. Chronic malnutrition PLAN: cont abx therapy f/u final culture results Appreciate input from Dr. Kirkpatrick, Urology Complete ACS r/o/ 2D echo / cardiology on board Continue home meds / fall and seizure precautions / serial labs pain control/ antiemetics/ antipyretics/ supportive care Will discuss about hospice care Exam/Review of Systems Vital Signs Vitals Vital Signs Date Time Temp Pulse Resp B/P Pulse Ox O2 Delivery O2 Flow Rate FiO2 05/07/16 18:39 3.0 05/07/16 14:55 72 20 93 Nasal Cannula 05/07/16 08:14 100.1 93/51 05/05/16 06:06 50 Intake and Output 05/06/16 05/06/16 05/07/16 15:00 23:00 07:00 Intake Total 1905 ml 790 ml 2620 ml Output Total 900 ml 1000 ml Balance 1905 ml -110 ml 1620 ml Results Result Diagram: 05/07/16 0432 05/07/16 0452 Results 24 hrs Laboratory Tests Test 05/07/16 04:32 05/07/16 04:52 Basophils # 0.0 Basophils % 0.2 Blood Morphology Comment Eosinophils # 0.1 Eosinophils % 1.4 Hematocrit 20.6 L Hemoglobin 7.5 L Lymphocytes # 1.0 Lymphocytes % 12.1 L Mean Corpuscular Hemoglobin 35.5 H Mean Corpuscular Hemoglobin Concent 36.2 Mean Corpuscular Volume 98.0 Mean Platelet Volume 8.3 Monocytes # 0.6 Monocytes % 6.6 Neutrophils # 6.7 Neutrophils % 79.7 H Nucleated Red Blood Cells # 0.0 Nucleated Red Blood Cells % 0.0 Platelet Count 147 Red Blood Count 2.11 L Red Cell Distribution Width 16.3 H White Blood Count 8.5 # Anion Gap 14 # Blood Urea Nitrogen 59 H Calcium Level 6.8 L Carbon Dioxide Level 19 L Chloride Level 116 H Creatinine 1.71 H Glucose Level 108 Magnesium Level 2.6 H Phosphorus Level 2.7 Potassium Level 3.6 Sodium Level 145 H Medications Medications Current Medications Aspirin (Halfprin) 81 mg DAILY PO Last administered on 05/07/16 08:21; Admin Dose 81 MG; Start 05/05/16 at 09:00; Status Future Hold Docusate Sodium (Colace) 100 mg BID PO Last administered on 05/07/16 08:22; Admin Dose 100 MG; Start 05/04/16 at 21:30 Ondansetron HCl (Zofran Inj) 4 mg Q6H PRN IV NAUSEA AND/OR VOMITING; Start 05/04 at 21:30 Heparin Sodium (Porcine) (Heparin (5000 Units/0.5 ml)) 5,000 unit BID SC Last administered on 05/07/16 08:20; Admin Dose 5,000 UNIT; Start 05/05/16 at 09:00 Acetaminophen (Tylenol Liquid) 650 mg Q6 PRN GTB PAIN AND OR ELEVATED TEMP Last administered on 05/07/16 06:28; Admin Dose 650 MG; Start 05/05/16 at 01:30 Ascorbic Acid (Vitamin C) 500 mg BID NGT Last administered on 05/07/16 08:21; Admin Dose 500 MG; Start 05/05/16 at 09:00 Carbidopa/Levodopa (Sinemet (25/ 100)) 1 tab Q12 NGT Last administered on 08:21; Admin Dose 1 TAB; Start 05/05/16 at 09:00 Ferrous Sulfate (Feosol Liquid Cup) 325 mg DAILY NGT Last administered on 08:21; Admin Dose 325 MG; Start 05/05/16 at 09:00 Levetiracetam (Keppra Liquid) 250 mg DAILY GTB Last administered on 05/07/16 08 :21; Admin Dose 250 MG; Start 05/05/16 at 09:00 Mirtazapine (Remeron) 7.5 mg HS NGT Last administered on 05/06/16 20:56; Admin Dose 7.5 MG; Start 05/05/16 at 21:00 Cholecalciferol (Vitamin D) 400 units DAILY GTB Last administered on 05/07/16 08:22; Admin Dose 400 UNITS; Start 05/05/16 at 09:00 Zinc Sulfate (Zinc Sulfate) 220 mg DAILY NGT Last administered on 05/07/16 08: 22; Admin Dose 220 MG; Start 05/05/16 at 09:00 Carbamazepine (Tegretol Susp (Ped)) 100 mg DAILY NGT Last administered on 11:33; Admin Dose 100 MG; Start 05/05/16 at 11:00 Influenza Virus Vaccine 0.5 ml 0.5 ml ONCE ONCE IM* ; Start 05/08/16 at 10:00; Stop 05/08/16 at 10:01 Cefepime HCl (Maxipime 1gm/50 ml (Pmx)) 50 ml @ 100 mls/hr Q24H IVPB Last administered on 05/07/16 15:59; Admin Dose 100 MLS/HR; Start 05/06/16 at 14:00 Famotidine (Pepcid) 20 mg DAILY GTB ; Start 05/08/16 at 09:00 Midodrine (Proamatine) 10 mg TID@,,17 GTB Last administered on 05/07/16 18: 16; Admin Dose 10 MG; Start 05/07/16 at 17:00 CANDE CORTEZ MD May 07, 2016 19:22
[2016-05-07] MEDS ORDERED: VANCOMYCIN 1 GM in NS 250 ML IVPB SCH (20:00)
[2016-05-07 20:05] VITALS: BP 90/48; RESP 16
[2016-05-07] MEDS: MIRTAZAPINE 15 MG TAB NGT SCH (20:52)
[2016-05-08 05:49] LABS: BASOPHILS % 0.3 % (0.0-2.0); EOSINOPHILS # 0.2 10^3/ul (0.0-0.5); EOSINOPHILS % 1.7 % (0.0-7.0); HEMATOCRIT 20.5 % (42.0-52.0); HEMOGLOBIN 7.1 g/dl (14.0-18.0); LYMPHOCYTES # 1.5 10^3/ul (0.8-2.9); LYMPHOCYTES % 16.2 % (15.0-51.0); MEAN CORPUSCULAR HGB CONC 34.7 g/dl (32.0-37.0); MEAN CORPUSCULAR VOLUME 95.1 fl (82.0-101.0); MEAN PLATELET VOLUME 8.5 fl (7.4-10.4); MONOCYTES % 10.5 % (0.0-11.0); NEUTROPHIL # 6.5 10^3/ul (1.6-7.5); NEUTROPHILS % 71.3 % (39.0-77.0); PLATELET COUNT 172 10^3/UL (140-440); RED BLOOD COUNT 2.16 10^6/ul (4.70-6.10); RED CELL DISTRIBUTION WIDTH 15.7 % (11.5-14.5); UNCORRECTED WBC 9.1 10^3/ul (4.8-10.8); WHITE BLOOD COUNT 9.1 10^3/ul (4.8-10.8)
[2016-05-08 05:58] LABS: CONDITION 1; LH ANALYZER COMMENTS 1
[2016-05-08 06:14] LABS: POTASSIUM 4.1 mmol/L (3.5-5.1)
[2016-05-08 06:17] LABS: CREATININE 1.48 mg/dl (0.61-1.24)
[2016-05-08 06:18] LABS: CALCIUM 7.1 mg/dl (8.4-10.2); MAGNESIUM 2.5 mg/dl (1.7-2.5)
[2016-05-08 07:38] VITALS: BP 96/46; RESP 19
[2016-05-08] MEDS: DOCUSATE SODIUM 100 MG CAP PO SCH ×2 (08:05→20:46)
[2016-05-08] MEDS: CARBIDOPA/LEVODOPA (25/100) TAB NGT SCH ×2 (08:05→20:51)
[2016-05-08] MEDS: ZINC SULFATE 220 MG CAP NGT SCH (08:05)
[2016-05-08] MEDS: carBAMAZepine SUSP 20 MG/ML POSYG NGT SCH ×3 (08:05→18:14)
[2016-05-08] MEDS: FERROUS SULFATE 60 MG/ML 5ML CUP NGT SCH (08:05)
[2016-05-08] MEDS: CHOLECALCIFEROL 400 UNITS TAB GTB SCH (08:05)
[2016-05-08] MEDS: ASCORBIC ACID 500 MG TAB NGT SCH ×2 (08:05→20:46)
[2016-05-08] MEDS: LEVETIRACETAM (100 MG/ML) 5ML CUP GTB SCH ×3 (08:06→20:52)
[2016-05-08] MEDS: HEPARIN 5,000 UNIT/0.5 ML SYG SC SCH ×2 (08:06→21:00)
[2016-05-08] MEDS: FAMOTIDINE 20 MG TAB GTB SCH (08:09)
[2016-05-08] MEDS: MIDODRINE 5 MG TAB GTB SCH ×3 (08:10→18:05)
[2016-05-08] MEDS ORDERED: INFLUENZA VIRUS VACCINE 0.5 ML (DISPENSING) IM* ONE (10:00)
--- NOTE | 2016-05-08 10:18 | CONS ---
DATE OF ADMISSION: 05/04/2016 DATE OF CONSULTATION: 05/08/2016 REFERRING PHYSICIAN: Conrado Verma MD HISTORY OF PRESENT ILLNESS: This is an unfortunate 80-year-old gentleman who is a resident of a [facility] nursing unit who was admitted to [facility] with sepsis, presumably secondary to urinary tract infection. I am asked to speak to family members concerning ongoing level of care , since this gentleman has had chronic progressive loss of his cognitive abilities, history of chron ic Parkinson disease and depression; also history of acute on chronic renal disease and a past medic al history of CVA. I have reviewed the patient's medical records in detail and spent time with the patient doing a brief overview and physical examination, and had a sit-down conversation with hamilton garcia's 2 children and 1 [id number]. Reviewed his current history, past medical history and progno sis, and ongoing level of care. Family made it very clear that their mother a very morbid , and suffered prior to her serjio se and did not want to see the same thing occur with her . They had questions and concerns a bout hospice care, and were under the assumption hospice care would initially immediately start pain control medications. I made it very clear to them that it was not the case, and the percent of hos pice patients would actually improve on intensive hospice care. They were not aware of this. I hav e explained the benefits of hospice, either home or in a fpc facility. At the time of t his dictation, family members have decided to reassess whether or not they would like to pursue hosp ice care at the time of discharge. The patient is currently a DO NOT RESUSCITATE. I will continue with this conversation with family members and follow up the next day. Dictated By: DORIAN DOMINGUEZ MD LP/NTS Conf#: [id number] DID#: [id number]
--- NOTE | 2016-05-08 11:26 | PN ---
DATE: 05/08/2016 SUBJECTIVE: Tumor over the right kidney. The patient himself has no complaint and not much of a hi storian. OBJECTIVE: VITAL SIGNS: His temperature is 99.6, pulse 67, respiration 19, blood pressure 96/46. ABDOMEN: Soft. The patient does have contractures of his extremities. LABORATORY DATA: CBC shows a white count 9.1, hemoglobin 7.1, hematocrit 20.5. The BUN is 53, crea tinine 1.48 and sodium 147, potassium is 4.1, chloride 119, CO2 18. He did have the CT scan of the abdomen and pelvis done yesterday and that was reported as: 1. There is a complex 8.8 x 8.2 x 7.5 hypodense solid versus complex cystic mass extending superiorl y off the superior pole of the right kidney measuring 20 HU, the wall thicker than a simple cyst. 2. There is moderate left pelvocaliectasis, mild right pelvocaliectasis with moderate bilateral hyd roureter. The bladder contains a Shine catheter and is suboptimally distended and the bladder wall appears considerably thickened, the prostate is not enlarged. 3. A 2.7 x 2.5 x 2.0 cm left adrenal mass that measured 34 HU, neoplasm is suspected. 4. A gastrostomy tube is seen to be in place. Substantial stool is seen in the colon without eviden ce of bowel obstruction or inflammation. 5. Cholelithiasis not associated with gallbladder wall thickening or bile duct dilatation. 6. Fairly extensive atherosclerotic vascular calcification. 7. Small bilateral gravitating pleural fluid accumulation with subsegmental atelectasis involving t he lower lobes bilaterally. 8. Cardiomegaly with atherosclerosis vascular calcification. 9. Moderately severe old-appearing compression fracture deformity involving T12 with slight retropu lsion of the posterior body. 10. Anasarca. 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 The patient is right now under comfort care and recommendation is to continue the comfort care and no plan for any surgical intervention on this patient. Dictated By: MELISSA LABOY/ERICA Conf#: [id number] DID#: [id number]
--- NOTE | 2016-05-08 12:40 | PN ---
DATE: 05/08/2016 CARDIOLOGY FOLLOWUP SUBJECTIVE: Discussed with the staff, discussed with the family at the bedside. The patient remain s nonverbal. The patient is not able to provide any history to me. MEDICATIONS: Reviewed. PHYSICAL EXAMINATION: VITAL SIGNS: Temperature 99.6, heart rate of 67, blood pressure 96/46, rate 19, saturating 98%. HEENT: Normocephalic, atraumatic. Pupils are equal. CARDIOVASCULAR: Regular rate and rhythm. PULMONARY: Anteriorly with no wheezes, minimal rhonchi. GASTROINTESTINAL: Soft, nontender. EXTREMITIES: Positive edema but contracted. NEUROLOGIC: Opens his eyes. DIAGNOSTIC DATA: Abdominal and pelvic CT done yesterday shows complex 8.8 x 8.2 x 7.55 hyperdense solid versus complex cystic mass, extends superiorly to superior pole of the right kidney. A 2.7 x 2.5 left adrenal mass that measures 34. Neoplasm suspected. LABORATORY: WBC of 9.1, hemoglobin 7.1, platelet 172. Sodium 147, potassium 4.1, BUN of 53, creati nine 1.48, glucose 110. ASSESSMENT AND PLAN: 1. Mildly abnormal troponin consistent with false positive troponin. 2. Acute renal failure, currently slowly improving. 3. Status post sepsis and urinary tract infection, gram-negative karrie bacteremia. 4. ____renal mass consistent with possible malignancy. 5. History of cerebrovascular accident and encephalopathy. 6. Dysphagia, status post percutaneous endoscopic gastrostomy placement. 7. History of seizure disorder. 8. Severe anemia. RECOMMENDATIONS: The patient off of aspirin due to above, significant anemia. Antibiotic as per in ternal medicine recommendations. The patient's code status is DNR. Follow with palliative care rec ommendations as well. Urology has seen the patient. Dictated By: DEON FERRARI/ERICA Conf#: [id number] DID#: [id number]
--- NOTE | 2016-05-08 12:49 | CONS ---
Date/Time of Note Date/Time of Note DATE: 05/08/16 TIME: 12:46 Consult Date/Type/Reason Admit Date/Time May 04, 2016 at 20:05 Initial Consult Date Type of Consultation: ID Subjective no acute changes, looks comfortable, family at bedside, + low grade temps Objective Vital Signs Date Time Temp Pulse Resp B/P Pulse Ox O2 Delivery O2 Flow Rate FiO2 05/08/16 07:38 99.6 67 19 96/46 98 05/08/16 06:33 3.0 05/07/16 20:20 Nasal Cannula 05/05/16 06:06 50 Intake and Output 05/07/16 05/07/16 05/08/16 15:00 23:00 07:00 Intake Total 1900 ml 700 ml Output Total 1100 ml 1000 ml Balance 800 ml -300 ml Results/Medications Result Diagram: 05/08/16 0455 05/08/16 0455 Results 24 hrs Laboratory Tests Test 05/08/16 04:55 05/08/16 08:07 05/08/16 08:18 Anion Gap 14 Basophils # 0.0 Basophils % 0.3 Blood Morphology Comment Blood Urea Nitrogen 53 H Calcium Level 7.1 L Carbon Dioxide Level 18 L Chloride Level 119 H Creatinine 1.48 H Eosinophils # 0.2 Eosinophils % 1.7 Glucose Level 110 Hematocrit 20.5 L Hemoglobin 7.1 L Lymphocytes # 1.5 Lymphocytes % 16.2 Magnesium Level 2.5 Mean Corpuscular Hemoglobin 33.0 Mean Corpuscular Hemoglobin Concent 34.7 Mean Corpuscular Volume 95.1 Mean Platelet Volume 8.5 Monocytes # 1.0 H Monocytes % 10.5 Neutrophils # 6.5 Neutrophils % 71.3 Nucleated Red Blood Cells # 0.0 Nucleated Red Blood Cells % 0.0 Phosphorus Level 3.0 Platelet Count 172 Potassium Level 4.1 Red Blood Count 2.16 L Red Cell Distribution Width 15.7 H Sodium Level 147 H White Blood Count 9.1 Lab Scanned Report REFERENCE LAB REFERENCE LAB Medications Current Medications Aspirin (Halfprin) 81 mg DAILY PO Last administered on 05/07/16 08:21; Admin Dose 81 MG; Start 05/05/16 at 09:00; Status Future Hold Docusate Sodium (Colace) 100 mg BID PO Last administered on 05/08/16 08:05; Admin Dose 100 MG; Start 05/04/16 at 21:30 Ondansetron HCl (Zofran Inj) 4 mg Q6H PRN IV NAUSEA AND/OR VOMITING; Start 05/04 at 21:30 Heparin Sodium (Porcine) (Heparin (5000 Units/0.5 ml)) 5,000 unit BID SC Last administered on 05/07/16 20:51; Admin Dose 5,000 UNIT; Start 05/05/16 at 09:00 Acetaminophen (Tylenol Liquid) 650 mg Q6 PRN GTB PAIN AND OR ELEVATED TEMP Last administered on 05/07/16 06:28; Admin Dose 650 MG; Start 05/05/16 at 01:30 Ascorbic Acid (Vitamin C) 500 mg BID NGT Last administered on 05/08/16 08:05; Admin Dose 500 MG; Start 05/05/16 at 09:00 Carbidopa/Levodopa (Sinemet (25/ 100)) 1 tab Q12 NGT Last administered on 08:05; Admin Dose 1 TAB; Start 05/05/16 at 09:00 Ferrous Sulfate (Feosol Liquid Cup) 325 mg DAILY NGT Last administered on 08:05; Admin Dose 325 MG; Start 05/05/16 at 09:00 Levetiracetam (Keppra Liquid) 250 mg DAILY GTB Last administered on 05/08/16 08 :06; Admin Dose 250 MG; Start 05/05/16 at 09:00 Mirtazapine (Remeron) 7.5 mg HS NGT Last administered on 05/07/16 20:52; Admin Dose 7.5 MG; Start 05/05/16 at 21:00 Cholecalciferol (Vitamin D) 400 units DAILY GTB Last administered on 05/08/16 08:05; Admin Dose 400 UNITS; Start 05/05/16 at 09:00 Zinc Sulfate (Zinc Sulfate) 220 mg DAILY NGT Last administered on 05/08/16 08: 05; Admin Dose 220 MG; Start 05/05/16 at 09:00 Carbamazepine 100 mg 100 mg DAILY NGT Last administered on 05/08/16 08:05; Admin Dose 100 MG; Start 05/05/16 at 11:00 Cefepime HCl (Maxipime 1gm/50 ml (Pmx)) 50 ml @ 100 mls/hr Q24H IVPB Last administered on 05/07/16 15:59; Admin Dose 100 MLS/HR; Start 05/06/16 at 14:00 Famotidine (Pepcid) 20 mg DAILY GTB Last administered on 05/08/16 08:09; Admin Dose 20 MG; Start 05/08/16 at 09:00 Midodrine (Proamatine) 10 mg TID@,13,17 GTB Last administered on 05/08/16 08: 10; Admin Dose 10 MG; Start 05/07/16 at 17:00 Assessment/Plan Chief Complaint/Hosp Course MICROBIOLOGY: Repeat blood cultures neg. Blood cultures on admission grew multi-drug resistant Escherichia coli. Urine culture growing Proteus mirabilis. ANTIMICROBIALS: IV cefepime. PHYSICAL EXAMINATION: GENERAL: This is a fragile, elderly man who is lying comfortably in bed. HEENT: Head atraumatic, normocephalic. Sclerae anicteric. Buccal mucosa dry. NECK: Supple, trachea midline. CHEST: Rise symmetrical. Breath sounds diminished at the bases. HEART: S1, S2. ABDOMEN: Soft, bowel tones present. EXTREMITIES: Without cyanosis. ASSESSMENT: 1. Sepsis with multi-drug resistant Escherichia coli septicemia. 2. Proteus mirabilis urinary tract infection. 3. Bilateral hydronephrosis. 4. Right renal mass, likely neoplastic. 5. Dysphagia with percutaneous endoscopic gastrostomy. 6. Acute renal failure. 7. History of cerebrovascular accident and Parkinson's dementia. PLAN: The patient remains clinically unchanged, continue present care, abx, rec-s noted==> comfort care focus with medical management is appropriate DW staff Problems: OLIVA LEAVITT NP May 08, 2016 12:48
[2016-05-08] MEDS: CEFEPIME 1GM/50 ML (PMX) 50 ML IVPB SCH (14:19)
--- NOTE | 2016-05-08 14:58 | CONS ---
Date/Time of Note Date/Time of Note DATE: 05/08/16 TIME: 14:57 Consult Date/Type/Reason Admit Date/Time May 04, 2016 at 20:05 Initial Consult Date Type of Consultation: neph Subjective SUBJECTIVE: The patient remains unchanged. Patient has been changed to palliative care status. No other acute events noted. No hemoptysis, hematemesis or hematochezia. OBJECTIVE: HEENT: Head is normocephalic. NECK: Supple. HEART: Regular rate. LUNGS: Show diminished breath sounds at the base. ABDOMEN: Soft, nontender to palpation without rebound or guarding. EXTREMITIES: Negative for clubbing, cyanosis, no edema. The patient has lower extremity contractures. DERMATOLOGIC: No rashes. MUSCULOSKELETAL: No joint effusions. NEUROLOGIC: No change in exam. GENITOURINARY EXAM: The patient has a urethra with erosion about 4 cm proximal to the meatus. ASSESSMENT AND PLAN: 1. Nonoliguric acute kidney injury on top of chronic kidney disease stage III with previous baseline creatinine between 1.1 and 1.3 mg/dL. Etiology of acute kidney injury is multifactorial secondary to septic acute kidney injury, bilateral hydroureter, hydronephrosis. The patient's renal function has been improving with IV hydration. The patient has also been seen by urologist, Dr. Kirkpatrick. At this point, continue current treatment plan. 2. Bilateral hydronephrosis, hydroureter. The patient may have an obstructive lesion. Follow up with urology. 3. Complex cystic renal mass concerning for possible neoplasm. Follow up CT of the abdomen and pelvis. 4. Hypernatremia, improving. Continue IV fluids at current rate. 5. Hypotension secondary to sepsis. Continue IV fluids. 6. Severe sepsis secondary to possible pneumonia, possible urinary tract infection. The patient's blood cultures have been positive. Continue current treatment plan. Continue IV antibiotics, IV fluids. 7. Anemia of chronic disease. Continue to monitor hemoglobin and hematocrit levels. 8. Mineral bone disorder. Continue to monitor calcium and phosphorous levels, no need for phosphate binders. 9. Acute encephalopathy, etiology is toxic metabolic. Continue to monitor. 10. Elevated troponin, non-ST elevation myocardial infarction, possibly type 2. Continue medical management. 11. Seizure disorder. Continue current treatment plan. 12. Parkinson's. Continue parkinsonian medications. Objective Vital Signs Date Time Temp Pulse Resp B/P Pulse Ox O2 Delivery O2 Flow Rate FiO2 05/08/16 07:38 99.6 67 19 96/46 98 05/08/16 06:33 3.0 05/07/16 20:20 Nasal Cannula 05/05/16 06:06 50 Intake and Output 05/07/16 05/07/16 05/08/16 15:00 23:00 07:00 Intake Total 1900 ml 700 ml Output Total 1100 ml 1000 ml Balance 800 ml -300 ml Results/Medications Result Diagram: 05/08/16 0455 05/08/16 0455 Results 24 hrs Laboratory Tests Test 05/08/16 04:55 05/08/16 08:07 05/08/16 08:18 Anion Gap 14 Basophils # 0.0 Basophils % 0.3 Blood Morphology Comment Blood Urea Nitrogen 53 H Calcium Level 7.1 L Carbon Dioxide Level 18 L Chloride Level 119 H Creatinine 1.48 H Eosinophils # 0.2 Eosinophils % 1.7 Glucose Level 110 Hematocrit 20.5 L Hemoglobin 7.1 L Lymphocytes # 1.5 Lymphocytes % 16.2 Magnesium Level 2.5 Mean Corpuscular Hemoglobin 33.0 Mean Corpuscular Hemoglobin Concent 34.7 Mean Corpuscular Volume 95.1 Mean Platelet Volume 8.5 Monocytes # 1.0 H Monocytes % 10.5 Neutrophils # 6.5 Neutrophils % 71.3 Nucleated Red Blood Cells # 0.0 Nucleated Red Blood Cells % 0.0 Phosphorus Level 3.0 Platelet Count 172 Potassium Level 4.1 Red Blood Count 2.16 L Red Cell Distribution Width 15.7 H Sodium Level 147 H White Blood Count 9.1 Lab Scanned Report REFERENCE LAB REFERENCE LAB Medications Current Medications Aspirin (Halfprin) 81 mg DAILY PO Last administered on 05/07/16 08:21; Admin Dose 81 MG; Start 05/05/16 at 09:00; Status Future Hold Docusate Sodium (Colace) 100 mg BID PO Last administered on 05/08/16 08:05; Admin Dose 100 MG; Start 05/04/16 at 21:30 Ondansetron HCl (Zofran Inj) 4 mg Q6H PRN IV NAUSEA AND/OR VOMITING; Start 05/04 at 21:30 Heparin Sodium (Porcine) (Heparin (5000 Units/0.5 ml)) 5,000 unit BID SC Last administered on 05/07/16 20:51; Admin Dose 5,000 UNIT; Start 05/05/16 at 09:00 Acetaminophen (Tylenol Liquid) 650 mg Q6 PRN GTB PAIN AND OR ELEVATED TEMP Last administered on 05/07/16 06:28; Admin Dose 650 MG; Start 05/05/16 at 01:30 Ascorbic Acid (Vitamin C) 500 mg BID NGT Last administered on 05/08/16 08:05; Admin Dose 500 MG; Start 05/05/16 at 09:00 Carbidopa/Levodopa (Sinemet (25/ 100)) 1 tab Q12 NGT Last administered on 08:05; Admin Dose 1 TAB; Start 05/05/16 at 09:00 Ferrous Sulfate (Feosol Liquid Cup) 325 mg DAILY NGT Last administered on 08:05; Admin Dose 325 MG; Start 05/05/16 at 09:00 Levetiracetam (Keppra Liquid) 250 mg DAILY GTB Last administered on 05/08/16 08 :06; Admin Dose 250 MG; Start 05/05/16 at 09:00 Mirtazapine (Remeron) 7.5 mg HS NGT Last administered on 05/07/16 20:52; Admin Dose 7.5 MG; Start 05/05/16 at 21:00 Cholecalciferol (Vitamin D) 400 units DAILY GTB Last administered on 05/08/16 08:05; Admin Dose 400 UNITS; Start 05/05/16 at 09:00 Zinc Sulfate (Zinc Sulfate) 220 mg DAILY NGT Last administered on 05/08/16 08: 05; Admin Dose 220 MG; Start 05/05/16 at 09:00 Carbamazepine 100 mg 100 mg DAILY NGT Last administered on 05/08/16 08:05; Admin Dose 100 MG; Start 05/05/16 at 11:00 Cefepime HCl (Maxipime 1gm/50 ml (Pmx)) 50 ml @ 100 mls/hr Q24H IVPB Last administered on 05/08/16 14:19; Admin Dose 100 MLS/HR; Start 05/06/16 at 14:00 Famotidine (Pepcid) 20 mg DAILY GTB Last administered on 05/08/16 08:09; Admin Dose 20 MG; Start 05/08/16 at 09:00 Midodrine (Proamatine) 10 mg TID@, GTB Last administered on 05/08/16t 13: 35; Admin Dose 10 MG; Start 05/07/16 at 17:00 WILLIAMS OCHOA MD May 08, 2016 14:58
--- NOTE | 2016-05-08 18:35 | PN ---
Date/Time of Note Date/Time of Note DATE: 05/08/16 TIME: 18:34 Assessment/Plan VTE Prophylaxis VTE Prophylaxis Intervention: heparin Lines/Catheters IV Catheter Type (from Nrs): Saline Lock Urinary Cath still in place: Yes Assessment/Plan Assessment/Plan IMPRESSION 1. Sepsis with bandemia 2/2 UTI 2. 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 Acute renal failure r/o CKD 4. NSTEMI versus troponin leak 5. Hypernatremia 6. Mild transaminitis 7. Chronic Parkinson's 8. 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 Seizures 10. Dementia 11. Depression 12. Chronic malnutrition PLAN: cont abx therapy f/u final culture results Appreciate input from Dr. Kirkpatrick, Urology Complete ACS r/o/ 2D echo / cardiology on board Continue home meds / fall and seizure precautions / serial labs pain control/ antiemetics/ antipyretics/ supportive care Will discuss about hospice care Prophylaxis: Heparin / pepcid Subjective 24 Hr Interval Summary Free Text/Dictation lethargic Exam/Review of Systems Vital Signs Vitals Vital Signs Date Time Temp Pulse Resp B/P Pulse Ox O2 Delivery O2 Flow Rate FiO2 05/08/16 15:03 Nasal Cannula 2.0 05/08/16 07:38 99.6 67 19 96/46 98 05/05/16 06:06 50 Intake and Output 05/07/16 05/07/16 05/08/16 15:00 23:00 07:00 Intake Total 1900 ml 700 ml Output Total 1100 ml 1000 ml Balance 800 ml -300 ml Exam Constitutional: alert (sarita open eyes), frail, other (contracted in both LE and LUE) Psych: other (Unable to assess) Head: normocephalic, other (+temporal msc wasting), No atraumatic Eyes: PERRL ENMT: No mucosa pink and moist (dry) Respiratory: crackles/rales, diminished breath sounds, labored breathing, wheezing Cardiovascular: murmurs/extra sounds, No regular rate and rhythm Gastrointestinal: bowel sounds, other (PEG tube noted, no cellulitis noted, nor oozing or discharge), soft Genitourinary - Male: other (penile orifice is widened with the presence of chronic martinez) Musculoskeletal: range of motion (reduced range of motion with chronic contractures in both LE and LUE. Patient only moves RUE spontaneously. ), No muscle tone (increased msc tone with chronic msc wasting ), No nl extremities to inspection Neurological: other, unresponsive (encephalopathic), No nl mental status Results Result Diagram: 05/08/16 0455 05/08/16 0455 Results 24 hrs Laboratory Tests Test 05/08/16 04:55 05/08/16 08:07 05/08/16 08:18 Anion Gap 14 Basophils # 0.0 Basophils % 0.3 Blood Morphology Comment Blood Urea Nitrogen 53 H Calcium Level 7.1 L Carbon Dioxide Level 18 L Chloride Level 119 H Creatinine 1.48 H Eosinophils # 0.2 Eosinophils % 1.7 Glucose Level 110 Hematocrit 20.5 L Hemoglobin 7.1 L Lymphocytes # 1.5 Lymphocytes % 16.2 Magnesium Level 2.5 Mean Corpuscular Hemoglobin 33.0 Mean Corpuscular Hemoglobin Concent 34.7 Mean Corpuscular Volume 95.1 Mean Platelet Volume 8.5 Monocytes # 1.0 H Monocytes % 10.5 Neutrophils # 6.5 Neutrophils % 71.3 Nucleated Red Blood Cells # 0.0 Nucleated Red Blood Cells % 0.0 Phosphorus Level 3.0 Platelet Count 172 Potassium Level 4.1 Red Blood Count 2.16 L Red Cell Distribution Width 15.7 H Sodium Level 147 H White Blood Count 9.1 Lab Scanned Report REFERENCE LAB REFERENCE LAB Medications Medications Current Medications Aspirin (Halfprin) 81 mg DAILY PO Last administered on 05/07/16 08:21; Admin Dose 81 MG; Start 05/05/16 at 09:00; Status Future Hold Docusate Sodium (Colace) 100 mg BID PO Last administered on 05/08/16 08:05; Admin Dose 100 MG; Start 05/04/16 at 21:30 Ondansetron HCl (Zofran Inj) 4 mg Q6H PRN IV NAUSEA AND/OR VOMITING; Start 05/04 at 21:30 Heparin Sodium (Porcine) (Heparin (5000 Units/0.5 ml)) 5,000 unit BID SC Last administered on 05/07/16 20:51; Admin Dose 5,000 UNIT; Start 05/05/16 at 09:00 Acetaminophen (Tylenol Liquid) 650 mg Q6 PRN GTB PAIN AND OR ELEVATED TEMP Last administered on 05/07/16 06:28; Admin Dose 650 MG; Start 05/05/16 at 01:30 Ascorbic Acid (Vitamin C) 500 mg BID NGT Last administered on 05/08/16 08:05; Admin Dose 500 MG; Start 05/05/16 at 09:00 Carbidopa/Levodopa (Sinemet (25/ 100)) 1 tab Q12 NGT Last administered on 08:05; Admin Dose 1 TAB; Start 05/05/16 at 09:00 Ferrous Sulfate (Feosol Liquid Cup) 325 mg DAILY NGT Last administered on 08:05; Admin Dose 325 MG; Start 05/05/16 at 09:00 Levetiracetam (Keppra Liquid) 250 mg DAILY GTB Last administered on 05/08/16 08 :06; Admin Dose 250 MG; Start 05/05/16 at 09:00 Mirtazapine (Remeron) 7.5 mg HS NGT Last administered on 05/07/16 20:52; Admin Dose 7.5 MG; Start 05/05/16 at 21:00 Cholecalciferol (Vitamin D) 400 units DAILY GTB Last administered on 05/08/16 08:05; Admin Dose 400 UNITS; Start 05/05/16 at 09:00 Zinc Sulfate (Zinc Sulfate) 220 mg DAILY NGT Last administered on 05/08/16 08: 05; Admin Dose 220 MG; Start 05/05/16 at 09:00 Carbamazepine 100 mg 100 mg DAILY NGT Last administered on 05/08/16 18:05; Admin Dose 100 MG; Start 05/05/16 at 11:00 Cefepime HCl (Maxipime 1gm/50 ml (Pmx)) 50 ml @ 100 mls/hr Q24H IVPB Last administered on 05/08/16 14:19; Admin Dose 100 MLS/HR; Start 05/06/16 at 14:00 Famotidine (Pepcid) 20 mg DAILY GTB Last administered on 05/08/16 08:09; Admin Dose 20 MG; Start 05/08/16 at 09:00 Midodrine (Proamatine) 10 mg TID@,,17 GTB Last administered on 05/08/16 18: 05; Admin Dose 10 MG; Start 05/07/16 at 17:00 CADNE CORTEZ MD May 08, 2016 18:35
[2016-05-08] MEDS: MIRTAZAPINE 15 MG TAB NGT SCH (20:44)
[2016-05-08 21:32] VITALS: BP 113/47; RESP 20
[2016-05-09 07:26] VITALS: BP 130/61; RESP 20
--- NOTE | 2016-05-09 08:31 | PN ---
DATE: 05/09/2016 CARDIOLOGY FOLLOWUP PROGRESS NOTE SUBJECTIVE: No new cardiac events. The patient remains nonverbal. Discussed with the staff. MEDICATIONS: Reviewed as per medication reconciliation, personally reviewed. PHYSICAL EXAMINATION: VITAL SIGNS: Temperature 98.4, heart rate of 70, blood pressure 113/47, respiratory rate of 20, sat urating 97%. HEENT: Normocephalic, atraumatic. No acute distress. Pupils are equal. CARDIOVASCULAR: Regular rate and rhythm, systolic murmur. PULMONARY: With mild rhonchi, diffuse. GASTROINTESTINAL: Soft, nontender. EXTREMITIES: Trivial edema. NEUROLOGIC: Opens his eyes, does not answer my questions. ASSESSMENT AND PLAN: 1. Mildly abnormal troponin consistent with troponin leak and not acute coronary syndrome. 2. Sepsis, bacteremia. 3. Right renal mass, possibly neoplasm. 4. Renal failure, acute on chronic probably, currently has improved though. 5. History of cerebrovascular accident. 6. Dementia, encephalopathy. 7. History of seizure disorder. 8. Dysphagia, status post percutaneous endoscopic gastrostomy placement. RECOMMENDATIONS: Antibiotic is managed as per ID's recommendation. We will continue with the suppo rtive care. The patient's aspirin is on hold due to her severe anemia. Conservative therapy. No f urther cardiac workup. We will follow the patient as needed. Dictated By: DEON SOLIZ MD AV/ERICA Conf#: [id number] DID#: [id number] CC: CANDE CORTEZ MD;*EndCC*
--- NOTE | 2016-05-09 08:57 | PN ---
DATE: 05/09/2016 SUBJECTIVE: Right renal tumor. HISTORY OF PRESENT ILLNESS: The patient himself is not communicative. He does have multiple proble ms that include acute renal failure and a STEMI versus troponin leak, hypernatremia, chronic Db on's disease, previous cerebrovascular accident with weakness and dysphagia status post PEG tube magdi cement. The patient does have contractures. He has a history of seizures, depression, and dementia . The patient himself is not capable of giving any complaints. OBJECTIVE: VITAL SIGNS: His temperature is 99.4, pulse 68, respirations 20, blood pressure 130/61. LABORATORY DATA: His last CBC shows a white count of 9.1, hemoglobin 7.1, hematocrit 28.5. BUN is 53, creatinine 1.48, and again the tumor in the kidney as demonstrated on the CT scan. Therefore, as mentioned earlier, due to the multiple problems that this patient has and his general condition, the decision is to make him comfortable and no plan for any surgical intervention for the tumor. Dictated By: MELISSA LABOY/ERICA Conf#: [id number] DID#: [id number]
[2016-05-09] MEDS: HEPARIN 5,000 UNIT/0.5 ML SYG SC SCH ×2 (09:19→21:06)
[2016-05-09] MEDS: CHOLECALCIFEROL 400 UNITS TAB GTB SCH (09:19)
[2016-05-09] MEDS: LEVETIRACETAM (100 MG/ML) 5ML CUP GTB SCH ×3 (09:19→21:03)
[2016-05-09] MEDS: DOCUSATE SODIUM 100 MG CAP PO SCH ×2 (09:20→21:04)
[2016-05-09] MEDS: CARBIDOPA/LEVODOPA (25/100) TAB NGT SCH ×2 (09:20→21:04)
[2016-05-09] MEDS: ZINC SULFATE 220 MG CAP NGT SCH (09:20)
[2016-05-09] MEDS: FERROUS SULFATE 60 MG/ML 5ML CUP NGT SCH (09:20)
[2016-05-09] MEDS: FAMOTIDINE 20 MG TAB GTB SCH (09:20)
[2016-05-09] MEDS: MIDODRINE 5 MG TAB GTB SCH ×3 (09:21→18:20)
[2016-05-09] MEDS: ASCORBIC ACID 500 MG TAB NGT SCH ×2 (09:21→21:04)
--- NOTE | 2016-05-09 11:39 | PDOCDIS ---
Discharge Instructions CONDITION Patient Condition: Guarded HOME CARE INSTRUCTIONS: Special Diet: Gtube feeding ACTIVITY: Activity Restrictions: Avoid heavy lifting Avoid Heavy Housework FOLLOW UP/APPOINTMENTS Appointments follow-up with primary care Doctor OTHER ORDERS: Other Orders: Call 911 and go to the nearest ER if you develop CANDE CORTEZ MD May 09, 2016 11:39
[2016-05-09] MEDS ORDERED: FUROSEMIDE 20 MG INJ IV ONE (12:00)
[2016-05-09] MEDS: CEFEPIME 1GM/50 ML (PMX) 50 ML IVPB SCH (13:00)
--- NOTE | 2016-05-09 14:06 | CONS ---
Date/Time of Note Date/Time of Note DATE: 05/09/16 TIME: 14:05 Consult Date/Type/Reason Admit Date/Time May 04, 2016 at 20:05 Type of Consultation: ID Subjective lethargic, looks comfortable, no fevers Objective Vital Signs Date Time Temp Pulse Resp B/P Pulse Ox O2 Delivery O2 Flow Rate FiO2 05/09/16 07:26 99.4 68 20 130/61 99 05/09/16 02:21 3.0 05/08/16 19:50 Nasal Cannula 05/08/16 19:41 32 Intake and Output 05/08/16 05/08/16 05/09/16 15:00 23:00 07:00 Intake Total 50 ml 1520 ml 760 ml Output Total 1200 ml 1150 ml Balance 50 ml 320 ml -390 ml Results/Medications Result Diagram: 05/08/16 0455 05/08/16 0455 Medications Current Medications Aspirin (Halfprin) 81 mg DAILY PO Last administered on 05/07/16 08:21; Admin Dose 81 MG; Start 05/05/16 at 09:00; Status Future Hold Docusate Sodium (Colace) 100 mg BID PO Last administered on 05/09/16 09:20; Admin Dose 100 MG; Start 05/04/16 at 21:30 Ondansetron HCl (Zofran Inj) 4 mg Q6H PRN IV NAUSEA AND/OR VOMITING; Start 05/04 at 21:30 Heparin Sodium (Porcine) (Heparin (5000 Units/0.5 ml)) 5,000 unit BID SC Last administered on 05/09/16 09:19; Admin Dose 5,000 UNIT; Start 05/05/16 at 09:00 Acetaminophen (Tylenol Liquid) 650 mg Q6 PRN GTB PAIN AND OR ELEVATED TEMP Last administered on 05/07/16 06:28; Admin Dose 650 MG; Start 05/05/16 at 01:30 Ascorbic Acid (Vitamin C) 500 mg BID NGT Last administered on 05/09/16 09:21; Admin Dose 500 MG; Start 05/05/16 at 09:00 Carbidopa/Levodopa (Sinemet (25/ 100)) 1 tab Q12 NGT Last administered on 09:20; Admin Dose 1 TAB; Start 05/05/16 at 09:00 Ferrous Sulfate (Feosol Liquid Cup) 325 mg DAILY NGT Last administered on 09:20; Admin Dose 325 MG; Start 05/05/16 at 09:00 Levetiracetam (Keppra Liquid) 250 mg DAILY GTB Last administered on 05/09/16 09 :19; Admin Dose 250 MG; Start 05/05/16 at 09:00 Mirtazapine (Remeron) 7.5 mg HS NGT Last administered on 05/08/16 20:44; Admin Dose 7.5 MG; Start 05/05/16 at 21:00 Cholecalciferol (Vitamin D) 400 units DAILY GTB Last administered on 05/09/16 09:19; Admin Dose 400 UNITS; Start 05/05/16 at 09:00 Zinc Sulfate (Zinc Sulfate) 220 mg DAILY NGT Last administered on 05/09/16 09: 20; Admin Dose 220 MG; Start 05/05/16 at 09:00 Carbamazepine 100 mg 100 mg DAILY NGT Last administered on 05/08/16 18:05; Admin Dose 100 MG; Start 05/05/16 at 11:00 Cefepime HCl (Maxipime 1gm/50 ml (Pmx)) 50 ml @ 100 mls/hr Q24H IVPB Last administered on 05/08/16 14:19; Admin Dose 100 MLS/HR; Start 05/06/16 at 14:00 Famotidine (Pepcid) 20 mg DAILY GTB Last administered on 05/09/16 09:20; Admin Dose 20 MG; Start 05/08/16 at 09:00 Midodrine (Proamatine) 10 mg TID@,,17 GTB Last administered on 05/09/16 09: 21; Admin Dose 10 MG; Start 05/07/16 at 17:00 Assessment/Plan Chief Complaint/Hosp Course MICROBIOLOGY: Repeat blood cultures neg. Blood cultures on admission grew multi-drug resistant Escherichia coli. Urine culture growing Proteus mirabilis. ANTIMICROBIALS: IV cefepime. PHYSICAL EXAMINATION: GENERAL: This is a fragile, elderly man who is lying comfortably in bed. HEENT: Head atraumatic, normocephalic. Sclerae anicteric. Buccal mucosa dry. NECK: Supple, trachea midline. CHEST: Rise symmetrical. Breath sounds diminished at the bases. HEART: S1, S2. ABDOMEN: Soft, bowel tones present. EXTREMITIES: Without cyanosis. ASSESSMENT: 1. Sepsis with multi-drug resistant Escherichia coli septicemia. 2. Proteus mirabilis urinary tract infection. 3. Bilateral hydronephrosis. 4. Right renal mass, likely neoplastic. 5. Dysphagia with percutaneous endoscopic gastrostomy. 6. Acute renal failure. 7. History of cerebrovascular accident and Parkinson's dementia. PLAN: Clinically unchanged, repeat bld cx negative, continue abx, not a surgical candidate 2 to multiple comorbidities DW staff Problems: OLIVA LEAVITT NP May 09, 2016 14:06
[2016-05-09] MEDS ORDERED: DIPHENHYDRAMINE 25 MG CAP PO ONE (15:30)
[2016-05-09] MEDS: ACETAMINOPHEN 650MG/20.3ML CUP GTB PRN (16:03)
--- NOTE | 2016-05-09 16:33 | CONS ---
Date/Time of Note Date/Time of Note DATE: 05/09/16 TIME: 16:31 Consult Date/Type/Reason Admit Date/Time May 04, 2016 at 20:05 Type of Consultation: ID Subjective SUBJECTIVE: The patient remains unchanged. Patient has been changed to palliative care status. No other acute events noted. seen by urology. no interventions planned. No hemoptysis, hematemesis or hematochezia. OBJECTIVE: HEENT: Head is normocephalic. NECK: Supple. HEART: Regular rate. LUNGS: Show diminished breath sounds at the base. ABDOMEN: Soft, nontender to palpation without rebound or guarding. EXTREMITIES: Negative for clubbing, cyanosis, no edema. The patient has lower extremity contractures. DERMATOLOGIC: No rashes. MUSCULOSKELETAL: No joint effusions. NEUROLOGIC: No change in exam. GENITOURINARY EXAM: The patient has a urethra with erosion about 4 cm proximal to the meatus. ASSESSMENT AND PLAN: 1. Nonoliguric acute kidney injury on top of chronic kidney disease stage III with previous baseline creatinine between 1.1 and 1.3 mg/dL. Etiology of acute kidney injury is multifactorial secondary to septic acute kidney injury, bilateral hydroureter, hydronephrosis. The patient's renal function has been improving with IV hydration. The patient has also been seen by urologist, Dr. Kirkpatrick. At this point, continue current treatment plan. 2. Bilateral hydronephrosis, hydroureter. The patient may have an obstructive lesion. Follow up with urology. no interventions plnaaned. 3. Complex cystic renal mass concerning for possible neoplasm. Follow up CT of the abdomen and pelvis. 4. Hypernatremia, improving. Continue IV fluids at current rate. 5. Hypotension secondary to sepsis. Continue IV fluids. 6. Severe sepsis secondary to possible pneumonia, possible urinary tract infection. The patient's blood cultures have been positive. Continue current treatment plan. Continue IV antibiotics, IV fluids. 7. Anemia of chronic disease. Continue to monitor hemoglobin and hematocrit levels. 8. Mineral bone disorder. Continue to monitor calcium and phosphorous levels, no need for phosphate binders. 9. Acute encephalopathy, etiology is toxic metabolic. Continue to monitor. 10. Elevated troponin, non-ST elevation myocardial infarction, possibly type 2. Continue medical management. 11. Seizure disorder. Continue current treatment plan. 12. Parkinson's. Continue parkinsonian medications. Objective Vital Signs Date Time Temp Pulse Resp B/P Pulse Ox O2 Delivery O2 Flow Rate FiO2 05/09/16 15:36 Nasal Cannula 2.0 05/09/16 07:26 99.4 68 20 130/61 99 05/08/16 19:41 32 Intake and Output 05/08/16 05/08/16 05/09/16 15:00 23:00 07:00 Intake Total 50 ml 1520 ml 760 ml Output Total 1200 ml 1150 ml Balance 50 ml 320 ml -390 ml Results/Medications Result Diagram: 05/08/16 0455 05/08/16 0455 Medications Current Medications Aspirin (Halfprin) 81 mg DAILY PO Last administered on 05/07/16 08:21; Admin Dose 81 MG; Start 05/05/16 at 09:00; Status Future Hold Docusate Sodium (Colace) 100 mg BID PO Last administered on 05/09/16 09:20; Admin Dose 100 MG; Start 05/04/16 at 21:30 Ondansetron HCl (Zofran Inj) 4 mg Q6H PRN IV NAUSEA AND/OR VOMITING; Start 05/04 at 21:30 Heparin Sodium (Porcine) (Heparin (5000 Units/0.5 ml)) 5,000 unit BID SC Last administered on 05/09/16 09:19; Admin Dose 5,000 UNIT; Start 05/05/16 at 09:00 Acetaminophen (Tylenol Liquid) 650 mg Q6 PRN GTB PAIN AND OR ELEVATED TEMP Last administered on 05/09/16 16:03; Admin Dose 650 MG; Start 05/05/16 at 01:30 Ascorbic Acid (Vitamin C) 500 mg BID NGT Last administered on 05/09/16 09:21; Admin Dose 500 MG; Start 05/05/16 at 09:00 Carbidopa/Levodopa (Sinemet (25/ 100)) 1 tab Q12 NGT Last administered on 09:20; Admin Dose 1 TAB; Start 05/05/16 at 09:00 Ferrous Sulfate (Feosol Liquid Cup) 325 mg DAILY NGT Last administered on 09:20; Admin Dose 325 MG; Start 05/05/16 at 09:00 Levetiracetam (Keppra Liquid) 250 mg DAILY GTB Last administered on 05/09/16 09 :19; Admin Dose 250 MG; Start 05/05/16 at 09:00 Mirtazapine (Remeron) 7.5 mg HS NGT Last administered on 05/08/16 20:44; Admin Dose 7.5 MG; Start 05/05/16 at 21:00 Cholecalciferol (Vitamin D) 400 units DAILY GTB Last administered on 05/09/16 09:19; Admin Dose 400 UNITS; Start 05/05/16 at 09:00 Zinc Sulfate (Zinc Sulfate) 220 mg DAILY NGT Last administered on 05/09/16 09: 20; Admin Dose 220 MG; Start 05/05/16 at 09:00 Carbamazepine 100 mg 100 mg DAILY NGT Last administered on 05/08/16 18:05; Admin Dose 100 MG; Start 05/05/16 at 11:00 Cefepime HCl (Maxipime 1gm/50 ml (Pmx)) 50 ml @ 100 mls/hr Q24H IVPB Last administered on 05/09/16 13:00; Admin Dose 100 MLS/HR; Start 05/06/16 at 14:00 Famotidine (Pepcid) 20 mg DAILY GTB Last administered on 05/09/16 09:20; Admin Dose 20 MG; Start 05/08/16 at 09:00 Midodrine (Proamatine) 10 mg TID@, GTB Last administered on 05/09/16 13: 00; Admin Dose 10 MG; Start 05/07/16 at 17:00 WILLIAMS OCHOA MD May 09, 2016 16:32
[2016-05-09 17:10] VITALS: BP 121/60
[2016-05-09] MEDS: carBAMAZepine SUSP 20 MG/ML POSYG NGT SCH (19:57)
[2016-05-09 20:14] VITALS: BP 139/78; RESP 20
[2016-05-09] MEDS: MIRTAZAPINE 15 MG TAB NGT SCH (21:03)
[2016-05-09] MEDS ORDERED: FUROSEMIDE 20 MG INJ IV SCH (21:56)
--- NOTE | 2016-05-09 23:49 | PN ---
Date/Time of Note Date/Time of Note DATE: 05/09/16 TIME: 23:46 Assessment/Plan VTE Prophylaxis VTE Prophylaxis Intervention: heparin Lines/Catheters IV Catheter Type (from Nrsg): Saline Lock Urinary Cath still in place: Yes Reason Cath still needed: terminal illness/intractable pain Assessment/Plan Assessment/Plan IMPRESSION 1. Sepsis with bandemia 2/2 UTI 2. 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 Acute renal failure r/o CKD 4. NSTEMI versus troponin leak 5. Hypernatremia 6. Mild transaminitis 7. Chronic Parkinson's 8. 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 Seizures 10. Dementia 11. Depression 12. Chronic malnutrition 13. Fever PLAN: cont abx therapy f/u final culture results Appreciate input from Dr. Kirkpatrick, Urology Complete ACS r/o/ 2D echo / cardiology on board Continue home meds / fall and seizure precautions / serial labs pain control/ antiemetics/ antipyretics/ supportive care panculture and add vancomycin Prophylaxis: Heparin / pepcid Subjective 24 Hr Interval Summary Free Text/Dictation pt febrile Exam/Review of Systems Vital Signs Vitals Vital Signs Date Time Temp Pulse Resp B/P Pulse Ox O2 Delivery O2 Flow Rate FiO2 05/09/16 21:22 98.0 05/09/16 20:14 64 20 139/78 98 05/09/16 15:36 Nasal Cannula 2.0 05/08/16 19:41 32 Intake and Output 05/08/16 05/08/16 05/09/16 15:00 23:00 07:00 Intake Total 50 ml 1520 ml 760 ml Output Total 1200 ml 1150 ml Balance 50 ml 320 ml -390 ml Exam Constitutional: alert (sarita open eyes), frail, other (contracted in both LE and LUE) Psych: other (Unable to assess) Head: normocephalic, other (+temporal msc wasting), No atraumatic Eyes: PERRL ENMT: No mucosa pink and moist (dry) Respiratory: crackles/rales, diminished breath sounds, labored breathing, wheezing Cardiovascular: murmurs/extra sounds, No regular rate and rhythm Gastrointestinal: bowel sounds, other (PEG tube noted, no cellulitis noted, nor oozing or discharge), soft Genitourinary - Male: other (penile orifice is widened with the presence of chronic martinez) Musculoskeletal: range of motion (reduced range of motion with chronic contractures in both LE and LUE. Patient only moves RUE spontaneously. ), No muscle tone (increased msc tone with chronic msc wasting ), No nl extremities to inspection Neurological: other, unresponsive (encephalopathic), No nl mental status Results Result Diagram: 05/08/16 0455 05/08/16 0455 Medications Medications Current Medications Aspirin (Halfprin) 81 mg DAILY PO Last administered on 05/07/16 08:21; Admin Dose 81 MG; Start 05/05/16 at 09:00; Status Future Hold Docusate Sodium (Colace) 100 mg BID PO Last administered on 05/09/16 21:04; Admin Dose 100 MG; Start 05/04/16 at 21:30 Ondansetron HCl (Zofran Inj) 4 mg Q6H PRN IV NAUSEA AND/OR VOMITING; Start 05/04 at 21:30 Heparin Sodium (Porcine) (Heparin (5000 Units/0.5 ml)) 5,000 unit BID SC Last administered on 05/09/16 21:06; Admin Dose 5,000 UNIT; Start 05/05/16 at 09:00 Acetaminophen (Tylenol Liquid) 650 mg Q6 PRN GTB PAIN AND OR ELEVATED TEMP Last administered on 05/09/16 16:03; Admin Dose 650 MG; Start 05/05/16 at 01:30 Ascorbic Acid (Vitamin C) 500 mg BID NGT Last administered on 05/09/16 21:04; Admin Dose 500 MG; Start 05/05/16 at 09:00 Carbidopa/Levodopa (Sinemet (25/ 100)) 1 tab Q12 NGT Last administered on 21:04; Admin Dose 1 TAB; Start 05/05/16 at 09:00 Ferrous Sulfate (Feosol Liquid Cup) 325 mg DAILY NGT Last administered on 09:20; Admin Dose 325 MG; Start 05/05/16 at 09:00 Levetiracetam (Keppra Liquid) 250 mg DAILY GTB Last administered on 05/09/16 09 :19; Admin Dose 250 MG; Start 05/05/16 at 09:00 Mirtazapine (Remeron) 7.5 mg HS NGT Last administered on 05/09/16 21:03; Admin Dose 7.5 MG; Start 05/05/16 at 21:00 Cholecalciferol (Vitamin D) 400 units DAILY GTB Last administered on 05/09/16 09:19; Admin Dose 400 UNITS; Start 05/05/16 at 09:00 Zinc Sulfate (Zinc Sulfate) 220 mg DAILY NGT Last administered on 05/09/16 09: 20; Admin Dose 220 MG; Start 05/05/16 at 09:00 Carbamazepine 100 mg 100 mg DAILY NGT Last administered on 05/08/16 18:05; Admin Dose 100 MG; Start 05/05/16 at 11:00 Cefepime HCl (Maxipime 1gm/50 ml (Pmx)) 50 ml @ 100 mls/hr Q24H IVPB Last administered on 05/09/16 13:00; Admin Dose 100 MLS/HR; Start 05/06/16 at 14:00 Famotidine (Pepcid) 20 mg DAILY GTB Last administered on 05/09/16 09:20; Admin Dose 20 MG; Start 05/08/16 at 09:00 Midodrine (Proamatine) 10 mg TID@,,17 GTB Last administered on 05/09/16 18: 20; Admin Dose 10 MG; Start 05/07/16 at 17:00 CANDE CORTEZ MD May 09, 2016 23:49
[2016-05-10 07:37] VITALS: BP 108/64; RESP 22
[2016-05-10] MEDS: FERROUS SULFATE 60 MG/ML 5ML CUP NGT SCH (08:15)
[2016-05-10] MEDS: carBAMAZepine SUSP 20 MG/ML POSYG NGT SCH (08:15)
[2016-05-10] MEDS: LEVETIRACETAM (100 MG/ML) 5ML CUP GTB SCH (08:15)
[2016-05-10] MEDS: CHOLECALCIFEROL 400 UNITS TAB GTB SCH (08:15)
[2016-05-10] MEDS: CARBIDOPA/LEVODOPA (25/100) TAB NGT SCH (08:15)
[2016-05-10] MEDS: ASCORBIC ACID 500 MG TAB NGT SCH (08:15)
[2016-05-10] MEDS: ZINC SULFATE 220 MG CAP NGT SCH (08:15)
[2016-05-10] MEDS: MIDODRINE 5 MG TAB GTB SCH (08:16)
[2016-05-10] MEDS: DOCUSATE SODIUM 100 MG CAP PO SCH (08:16)
[2016-05-10] MEDS: FAMOTIDINE 20 MG TAB GTB SCH (08:16)
[2016-05-10] MEDS: HEPARIN 5,000 UNIT/0.5 ML SYG SC SCH (08:18)
--- NOTE | 2016-05-10 09:17 | CONS ---
Date/Time of Note Date/Time of Note DATE: 05/10/16 TIME: 09:16 Consult Date/Type/Reason Admit Date/Time May 04, 2016 at 20:05 Type of Consultation: neph Subjective SUBJECTIVE: The patient remains unchanged. Patient has been changed to palliative care status. No other acute events noted. seen by urology. no interventions planned. No hemoptysis, hematemesis or hematochezia. OBJECTIVE: HEENT: Head is normocephalic. NECK: Supple. HEART: Regular rate. LUNGS: Show diminished breath sounds at the base. ABDOMEN: Soft, nontender to palpation without rebound or guarding. EXTREMITIES: Negative for clubbing, cyanosis, no edema. The patient has lower extremity contractures. DERMATOLOGIC: No rashes. MUSCULOSKELETAL: No joint effusions. NEUROLOGIC: No change in exam. GENITOURINARY EXAM: The patient has a urethra with erosion about 4 cm proximal to the meatus. ASSESSMENT AND PLAN: 1. Nonoliguric acute kidney injury on top of chronic kidney disease stage III with previous baseline creatinine between 1.1 and 1.3 mg/dL. Etiology of acute kidney injury is multifactorial secondary to septic acute kidney injury, bilateral hydroureter, hydronephrosis. The patient's renal function has been improving with IV hydration. The patient has also been seen by urologist, Dr. Kirkpatrick. At this point, continue current treatment plan. 2. Bilateral hydronephrosis, hydroureter. The patient may have an obstructive lesion. Follow up with urology. no interventions plnaaned. 3. Complex cystic renal mass concerning for possible neoplasm. Follow up CT of the abdomen and pelvis. 4. Hypernatremia, improving. Continue IV fluids at current rate. 5. Hypotension secondary to sepsis. Continue IV fluids. 6. Severe sepsis secondary to possible pneumonia, possible urinary tract infection. The patient's blood cultures have been positive. Continue current treatment plan. Continue IV antibiotics, IV fluids. 7. Anemia of chronic disease. Continue to monitor hemoglobin and hematocrit levels. 8. Mineral bone disorder. Continue to monitor calcium and phosphorous levels, no need for phosphate binders. 9. Acute encephalopathy, etiology is toxic metabolic. Continue to monitor. 10. Elevated troponin, non-ST elevation myocardial infarction, possibly type 2. Continue medical management. 11. Seizure disorder. Continue current treatment plan. 12. Parkinson's. Continue parkinsonian medications. Objective Vital Signs Date Time Temp Pulse Resp B/P Pulse Ox O2 Delivery O2 Flow Rate FiO2 05/10/16 07:37 97.8 74 22 108/64 100 05/09/16 20:00 Nasal Cannula 2.0 05/08/16 19:41 32 Intake and Output 05/09/16 05/09/16 05/10/16 15:00 23:00 07:00 Intake Total 50 ml 900 ml 1350 ml Output Total 1000 ml 2100 ml Balance 50 ml -100 ml -750 ml Results/Medications Result Diagram: 05/08/16 0455 05/08/16 0455 Medications Current Medications Aspirin (Halfprin) 81 mg DAILY PO Last administered on 05/07/16 08:21; Admin Dose 81 MG; Start 05/05/16 at 09:00; Status Future Hold Docusate Sodium (Colace) 100 mg BID PO Last administered on 05/10/16 08:16; Admin Dose 100 MG; Start 05/04/16 at 21:30 Ondansetron HCl (Zofran Inj) 4 mg Q6H PRN IV NAUSEA AND/OR VOMITING; Start 05/04 at 21:30 Heparin Sodium (Porcine) (Heparin (5000 Units/0.5 ml)) 5,000 unit BID SC Last administered on 05/10/16 08:18; Admin Dose 5,000 UNIT; Start 05/05/16 at 09:00 Acetaminophen (Tylenol Liquid) 650 mg Q6 PRN GTB PAIN AND OR ELEVATED TEMP Last administered on 05/09/16 16:03; Admin Dose 650 MG; Start 05/05/16 at 01:30 Ascorbic Acid (Vitamin C) 500 mg BID NGT Last administered on 05/10/16 08:15; Admin Dose 500 MG; Start 05/05/16 at 09:00 Carbidopa/Levodopa (Sinemet (25/ 100)) 1 tab Q12 NGT Last administered on 08:15; Admin Dose 1 TAB; Start 05/05/16 at 09:00 Ferrous Sulfate (Feosol Liquid Cup) 325 mg DAILY NGT Last administered on 08:15; Admin Dose 325 MG; Start 05/05/16 at 09:00 Levetiracetam (Keppra Liquid) 250 mg DAILY GTB Last administered on 05/10/16 08 :15; Admin Dose 250 MG; Start 05/05/16 at 09:00 Mirtazapine (Remeron) 7.5 mg HS NGT Last administered on 05/09/16 21:03; Admin Dose 7.5 MG; Start 05/05/16 at 21:00 Cholecalciferol (Vitamin D) 400 units DAILY GTB Last administered on 05/10/16 08:15; Admin Dose 400 UNITS; Start 05/05/16 at 09:00 Zinc Sulfate (Zinc Sulfate) 220 mg DAILY NGT Last administered on 05/10/16 08: 15; Admin Dose 220 MG; Start 05/05/16 at 09:00 Carbamazepine 100 mg 100 mg DAILY NGT Last administered on 05/10/16 08:15; Admin Dose 100 MG; Start 05/05/16 at 11:00 Cefepime HCl (Maxipime 1gm/50 ml (Pmx)) 50 ml @ 100 mls/hr Q24H IVPB Last administered on 05/09/16 13:00; Admin Dose 100 MLS/HR; Start 05/06/16 at 14:00 Famotidine (Pepcid) 20 mg DAILY GTB Last administered on 05/10/16 08:16; Admin Dose 20 MG; Start 05/08/16 at 09:00 Midodrine (Proamatine) 10 mg TID@,,17 GTB Last administered on 05/10/16 08: 16; Admin Dose 10 MG; Start 05/07/16 at 17:00 WILLIAMS OCHOA MD May 10, 2016 09:17
--- NOTE | 2016-05-10 14:14 | CONS ---
Date/Time of Note Date/Time of Note DATE: 05/10/16 TIME: 14:12 Consult Date/Type/Reason Admit Date/Time May 04, 2016 at 20:05 Type of Consultation: id Subjective spiked fever, no other changes, lying comfortably in bed, nad Objective Vital Signs Date Time Temp Pulse Resp B/P Pulse Ox O2 Delivery O2 Flow Rate FiO2 05/10/16 10:30 Nasal Cannula 2.0 05/10/16 07:37 97.8 74 22 108/64 100 05/08/16 19:41 32 Intake and Output 05/09/16 05/09/16 05/10/16 15:00 23:00 07:00 Intake Total 50 ml 900 ml 1350 ml Output Total 1000 ml 2100 ml Balance 50 ml -100 ml -750 ml Results/Medications Result Diagram: 05/08/16 0455 05/08/16 0455 Medications Current Medications Aspirin (Halfprin) 81 mg DAILY PO Last administered on 05/07/16 08:21; Admin Dose 81 MG; Start 05/05/16 at 09:00; Status Future Hold Docusate Sodium (Colace) 100 mg BID PO Last administered on 05/10/16 08:16; Admin Dose 100 MG; Start 05/04/16 at 21:30 Ondansetron HCl (Zofran Inj) 4 mg Q6H PRN IV NAUSEA AND/OR VOMITING; Start 05/04 at 21:30 Heparin Sodium (Porcine) (Heparin (5000 Units/0.5 ml)) 5,000 unit BID SC Last administered on 05/10/16 08:18; Admin Dose 5,000 UNIT; Start 05/05/16 at 09:00 Acetaminophen (Tylenol Liquid) 650 mg Q6 PRN GTB PAIN AND OR ELEVATED TEMP Last administered on 05/09/16 16:03; Admin Dose 650 MG; Start 05/05/16 at 01:30 Ascorbic Acid (Vitamin C) 500 mg BID NGT Last administered on 05/10/16 08:15; Admin Dose 500 MG; Start 05/05/16 at 09:00 Carbidopa/Levodopa (Sinemet (25/ 100)) 1 tab Q12 NGT Last administered on 08:15; Admin Dose 1 TAB; Start 05/05/16 at 09:00 Ferrous Sulfate (Feosol Liquid Cup) 325 mg DAILY NGT Last administered on 08:15; Admin Dose 325 MG; Start 05/05/16 at 09:00 Levetiracetam (Keppra Liquid) 250 mg DAILY GTB Last administered on 05/10/16 08 :15; Admin Dose 250 MG; Start 05/05/16 at 09:00 Mirtazapine (Remeron) 7.5 mg HS NGT Last administered on 05/09/16 21:03; Admin Dose 7.5 MG; Start 05/05/16 at 21:00 Cholecalciferol (Vitamin D) 400 units DAILY GTB Last administered on 05/10/16 08:15; Admin Dose 400 UNITS; Start 05/05/16 at 09:00 Zinc Sulfate (Zinc Sulfate) 220 mg DAILY NGT Last administered on 05/10/16 08: 15; Admin Dose 220 MG; Start 05/05/16 at 09:00 Carbamazepine 100 mg 100 mg DAILY NGT Last administered on 05/10/16 08:15; Admin Dose 100 MG; Start 05/05/16 at 11:00 Cefepime HCl (Maxipime 1gm/50 ml (Pmx)) 50 ml @ 100 mls/hr Q24H IVPB Last administered on 05/09/16 13:00; Admin Dose 100 MLS/HR; Start 05/06/16 at 14:00 Famotidine (Pepcid) 20 mg DAILY GTB Last administered on 05/10/16 08:16; Admin Dose 20 MG; Start 05/08/16 at 09:00 Midodrine (Proamatine) 10 mg TID@,,17 GTB Last administered on 05/10/16 08: 16; Admin Dose 10 MG; Start 05/07/16 at 17:00 Assessment/Plan Chief Complaint/Hosp Course MICROBIOLOGY: Repeat blood cultures neg. Blood cultures on admission grew multi-drug resistant Escherichia coli. Urine culture growing Proteus mirabilis. ANTIMICROBIALS: IV cefepime. PHYSICAL EXAMINATION: GENERAL: This is a fragile, elderly man who is lying comfortably in bed. HEENT: Head atraumatic, normocephalic. Sclerae anicteric. Buccal mucosa dry. NECK: Supple, trachea midline. CHEST: Rise symmetrical. Breath sounds diminished at the bases. HEART: S1, S2. ABDOMEN: Soft, bowel tones present. EXTREMITIES: Without cyanosis. ASSESSMENT: 1. Sepsis with multi-drug resistant Escherichia coli septicemia. 2. Proteus mirabilis urinary tract infection. 3. Bilateral hydronephrosis. 4. Right renal mass, likely neoplastic. 5. Dysphagia with percutaneous endoscopic gastrostomy. 6. Acute renal failure. 7. History of cerebrovascular accident and Parkinson's dementia. PLAN: Clinically unchanged, s/p high fever yesterday, will repeat cx's, add Vanco, check CXR. Pt is not a surgical candidate per note, he is dnr status [facility] staff Problems: OLIVA LEAVITT NP May 10, 2016 14:14
[2016-05-10] MEDS ORDERED: VANCOMYCIN IV PER PHARMACY XX SCH (14:30)
[2016-05-10] MEDS ORDERED: VANCOMYCIN 1 GM in NS 250 ML IVPB ONE (15:00)
[2016-05-11] MEDS ORDERED: VANCOMYCIN 500MG/NS (PMX) 100 ML IVPB SCH (15:00)
== END 2016-05-10 14:20 | DRG 871 ==
LOC: E/R 18:32 → PP2 20:05
PROVIDERS: ADMIT Family Medicine; ATTEND Family Medicine
DX: A41.51 Sepsis due to Escherichia coli [E. coli] (principal); G92 Toxic encephalopathy; I21.4 Non-ST elevation (NSTEMI) myocardial infarction; N17.9 Acute kidney failure, unspecified; E87.0 Hyperosmolality and hypernatremia; J18.9 Pneumonia, unspecified organism; E46 Unspecified protein-calorie malnutrition; N18.3 Chronic kidney disease, stage 3 (moderate); N39.0 Urinary tract infection, site not specified; I69.954 Hemiplegia and hemiparesis following unspecified cerebrovascular disease affecting left non-dominant side; R65.20 Severe sepsis without septic shock; B96.89 Other specified bacterial agents as the cause of diseases classified elsewhere; Z68.21 Body mass index [BMI] 21.0-21.9, adult; D64.9 Anemia, unspecified; G20 Parkinson's disease; F02.80 Dementia in other diseases classified elsewhere, unspecified severity, without behavioral disturbance, psychotic disturbance, mood disturbance, and anxiety; F32.9 Major depressive disorder, single episode, unspecified; I69.991 Dysphagia following unspecified cerebrovascular disease; R13.10 Dysphagia, unspecified; G40.909 Epilepsy, unspecified, not intractable, without status epilepticus; Z66 Do not resuscitate; Z16.24 Resistance to multiple antibiotics; B96.4 Proteus (mirabilis) (morganii) as the cause of diseases classified elsewhere
CPT/HCPCS: 36415; 36430; 71010; 74176; 76775; 80048; 80053; 80202; 81001; 81003; 82043; 82550; 82553; 83605; 83735; 83970; 84100; 84134; 84155; 84300; 84484; 85025; 85610; 85730; 86850; 86900; 86901; 86920; 87040; 87045; 87075; 87081; 87086; 87400; 90686; 93005; 93306; 93923; 94640; 94664; 96374; 96375; J1940; J0692; J1630; J3370; J7030; P9016